=== PATIENT | male | born 1940 | race Caucasian/White ===

== ENCOUNTER 2016-12-19 07:27 | Day surgery (SDC) | payer MEDICARE, OTHER ==
[~2016-12-19 07:27] MED LIST: Lactated Ringers 1,000 ML IV SCH; Lidocaine 1%/Sod Bicarbonate in NS 8.4% 1 ML Syringe PRN; Sodium Chloride 0.9% 10 ML Syringe FLUSH PRN
--- NOTE | 2016-12-19 07:55 | PCM.OPNOTE ---
- General Post-Op/Procedure Note Date of Surgery/Procedure: 12/19/16 Operative Procedure(s): Surveillance colonoscopy with cold forceps polypectomy Pre Op Diagnosis: Personal history of adenomatous polyps, personal history of polyps with high-grade dysplasia Post-Op Diagnosis: Colon polyps Anesthesia Technique: MAC Primary Surgeon: Lexi Torres Anesthesia Provider: Sobia Mahoney Pathology: 1. Transverse colon polyp 2. Sigmoid colon polyp 3. Rectosigmoid junction polyp EBL in mLs: 1 Complications: None Condition: Good Free Text/Narrative:: FLUIDS: 900 mL crystalloid INDICATION FOR PROCEDURE: The patient is a 76-year-old man who was referred to me by Dr. Kathrin Moralez for evaluation for a personal history of multiple colon polyps, including polyps that had high-grade dysplasia. Performing a surveillance colonoscopy and the associated risks of the procedure had been discussed with the patient. The patient found these risks acceptable and agreed to proceed. DESCRIPTION OF PROCEDURE: The patient was taken to the operating room and placed in left lateral decubitus position. After induction of adequate sedation , a digital rectal exam was performed which was unremarkable. A pediatric Olympus colonoscope was inserted into the rectum and guided under direct visualization to the appendiceal orifice and ileocecal valve. The scope was then slowly withdrawn through the colon. The quality of the prep was good. There was no evidence of angiodysplasias or diverticulum. There is a small sessile polyp in the transverse colon. This was removed in its entirety using cold forceps. There was a small sessile sigmoid colon polyp. This was removed in its entirety using cold forceps. There was a small rectosigmoid junction colon polyp, this was removed in its entirety using cold forceps. or mass lesions. The scope was withdrawn into the rectum and retroflexed. There was no significant prominence of the patient's internal hemorrhoids. The scope was straightened, the colon was desufflated, and the scope was withdrawn. The patient was awakened from sedation and transferred to the recovery room in stable condition having tolerated the procedure well. POSTOPERATIVE PLAN: I discussed with the patient and his my intraoperative findings and recommendations. He will be sent a letter regarding his colonoscopy pathology and when his next procedure should be performed. I would recommend no greater than 3 years due to his history of colon polyp with high- grade dysplasia.
--- NOTE | 2016-12-19 09:35 | PCM.PREANE ---
Preanesthetic Assessment - Anesthesia/Transfusion/Family Hx Anesthesia History: Prior Anesthesia Without Reaction Family History of Anesthesia Reaction: No Transfusion History: No Prior Transfusion(s) - Review of Systems General: No Symptoms Pulmonary: Shortness of Breath (copd), Cough Cardiovascular: No Symptoms Gastrointestinal: No symptoms, Constipation (watches closely) Neurological: No Symptoms, Headache (occasional) Other: Reports: Easy Bruising, Diabetes, Sinus Problem, Neck Pain (sometimes goes out), Depression (at times) - Physical Assessment NPO Status Date: 12/18/16 NPO Status Time: 22:00 O2 Sat by Pulse Oximetry: 98 Respiratory Rate: 16 Vital Signs: Last Vital Signs Temp 96.8 F 12/19/16 07:40 Pulse 72 12/19/16 07:40 Resp 16 12/19/16 07:40 BP 112/90 12/19/16 07:40 Pulse Ox 98 12/19/16 07:40 Height: 5 ft 9.5 in Weight: 92.986 kg ASA Class: 3 Mental Status: Alert & Oriented x3 Airway Class: Mallampati = 1 Dentition: Reports: Dentures (top and bottom) Thyro-Mental Finger Breadths: 3 Mouth Opening Finger Breadths: 3 ROM/Head Extension: Full Lungs: Clear to auscultation, Normal respiratory effort Cardiovascular: Regular Rate, Regular Rhythm - Allergies Allergies/Adverse Reactions: Allergies Allergy/AdvReac Type Severity Reaction Status Date / Time No Known Allergies Allergy Verified 12/19/16 08:05 - Blood Blood Available: No - Acknowledgements Anesthesia Type Planned: MAC Pt an Appropriate Candidate for the Planned Anesthesia: Yes Alternatives and Risks of Anesthesia Discussed w Pt/Guardian: Yes Pt/Guardian Understands and Agrees with Anesthesia Plan: Yes PreAnesthesia Questionnaire HEENT History: Reports: Impaired Vision Other HEENT History: wears glasses, dentures Cardiovascular History: Reports: Hypertension, Other (See Below) Other Cardiovascular History: diastolic dysfunction, angiogram, heart cath Respiratory History: Reports: COPD, Other (See Below) Other Respiratory History: histoplasmosis, chronic airway obstruction Gastrointestinal History: Reports: Chronic Constipation, Colon Polyp, PUD, Other (See Below) Other Gastrointestinal History: gastroparesis Genitourinary History: Reports: None MECHANIC History: Reports: None Musculoskeletal History: Reports: Osteoarthritis Neurological History: Reports: None Psychiatric History: Reports: None Endocrine/Metabolic History: Reports: Diabetes, Type II Hematologic History: Reports: None Immunologic History: Reports: None Oncologic (Cancer) History: Reports: None Dermatologic History: Reports: None - Past Surgical History GI Surgical History: Reports: Cholecystectomy, Colonoscopy Musculoskeletal Surgical History: Reports: Knee Replacement, Other (See Below) Other Musculoskeletal Surgeries/Procedures:: bilateral knee replacements, great toe bone spur repair - SUBSTANCE USE Smoking Status *Q: Former Smoker (quit 1997) Tobacco Use Within Last Twelve Months: No Second Hand Smoke Exposure: No Days Per Week of Alcohol Use: 0 Recreational Drug Use History: No - HOME MEDS Home Medications: Home Meds Albuterol [Proair HFA] 1 - 2 puff INH Q4H PRN 12/18/16 [History] Aloe Vera/Sodium Chloride [[place] Saline Nasal Gel] 1 dose NASBOTH DAILY PRN [History] Aspirin [Rosa Chewable Aspirin] 81 mg PO DAILY 12/18/16 [History] Budesonide/Formoterol [Symbicort 160-4.5 MCG] 2 puff INH BID 12/18/16 [History] Fluticasone Propionate [Flonase Allergy Relief] 1 spray NASBOTH DAILY PRN [History] Insulin Glarg,Human.Rec.Analog [LantUS Solostar] 22 units SQ BEDTIME 12/18/16 [ History] Krill/[place]-3/Dha/Epa/Lipids [Krill Oil 300 mg Softgel] 300 mg PO DAILY [History] L. Acidophilus/Pectin, [place] [Acidophilus Capsule] 1 cap PO DAILY 12/18/16 [ History] Lisinopril [Lisinopril] 10 mg PO DAILY 12/18/16 [History] Lutein/Minerals/Vit A,C & E [Ocuvite] 1 tab PO DAILY 12/18/16 [History] Multivitamin [Multivitamins] 1 tab PO DAILY 12/18/16 [History] Polyethylene Glycol 3350 [MiraLAX] 1 dose PO DAILY PRN 12/18/16 [History] Psyllium Husk [Metamucil] 1 dose PO DAILY PRN 12/18/16 [History] Sennosides [Senna] 1 - 2 tab PO DAILY 12/18/16 [History] Turmeric Root Extract [Turmeric] 500 mg PO DAILY 12/18/16 [History] Vitamin B Complex 1 cap PO DAILY 12/18/16 [History] sitaGLIPtin Phosphate [Januvia] 100 mg PO DAILY 12/18/16 [History] - CURRENT (IN HOUSE) MEDS Current Meds: Current Medications Lactated Ringer's (Ringers, Lactated) 1,000 mls @ 125 mls/hr IV ASDIRECTED RAISA Stop: 12/19/16 23:00 Last Admin: 12/19/16 07:50 Dose: 125 mls/hr Lidocaine/Sodium Bicarbonate (Buffered Lidocaine 1% In Ns 8.4%) 0.25 ml .XX ONETIME PRN PRN Reason: Prior to IV Start Stop: 12/19/16 18:00 Last Admin: 12/19/16 07:49 Dose: 0.25 ml Sodium Chloride (Saline Flush) 10 ml FLUSH ASDIRECTED PRN PRN Reason: Keep Vein Open Stop: 12/19/16 18:00 Discontinued Medications Lidocaine HCl (Xylocaine-Mpf 1%) Confirm Administered Dose 2 mls @ as directed .ROUTE .STK-MED ONE Stop: 12/19/16 09:38 Propofol (Diprivan 20 Ml) Confirm Administered Dose 200 mg .ROUTE .STK-MED ONE Stop: 12/19/16 09:38
[2016-12-19] MEDS ORDERED: Propofol 200 MG/20 ML SDV ONE ×3 (09:37→10:36)
[2016-12-19] MEDS ORDERED: Lidocaine 1% 2 ML ONE (09:37)
--- NOTE | 2016-12-19 10:34 | PCM48HPAN ---
Post Anesthesia Note - EVALUATION WITHIN 48HRS OF ANESTHETIC Vital Signs in Normal Range: Yes Patient Participated in Evaluation: Yes Respiratory Function Stable: Yes Airway Patent: Yes Cardiovascular Function Stable: Yes Hydration Status Stable: Yes Pain Control Satisfactory: Yes Nausea and Vomiting Control Satisfactory: Yes Mental Status Recovered: Yes
[2016-12-19 12:03] VITALS: BP 119/64
== END 2016-12-19 11:40 | disposition home or self-care (01) ==
LOC: JD.SDS 07:27
PROVIDERS: ATTEND Surgery
DX: Z12.11 Encounter for screening for malignant neoplasm of colon (principal); D12.3 Benign neoplasm of transverse colon; D12.5 Benign neoplasm of sigmoid colon; D12.7 Benign neoplasm of rectosigmoid junction; E11.43 Type 2 diabetes mellitus with diabetic autonomic (poly)neuropathy; J44.9 Chronic obstructive pulmonary disease, unspecified; K31.84 Gastroparesis; K27.9 Peptic ulcer, site unspecified, unspecified as acute or chronic, without hemorrhage or perforation; M19.90 Unspecified osteoarthritis, unspecified site; I51.89 Other ill-defined heart diseases; Z85.828 Personal history of other malignant neoplasm of skin
CPT/HCPCS: 45380; 88305; J7120; 00810; J2704

== ENCOUNTER 2018-03-24 11:40 | Emergency (ER) | payer MEDICARE, OTHER ==
[2018-03-24] MEDS ORDERED: Sodium Chloride 0.9% 10 ML Syringe FLUSH PRN (12:48)
--- NOTE | 2018-03-24 13:58 | EDM.PDOC ---
ED HPI GENERAL MEDICAL PROBLEM - General Chief Complaint: Cardiovascular Problem Stated Complaint: ATRIAL FLUTTER SENT BY [facility] Time Seen by Provider: 03/24/18 13:33 Source of Information: Reports: Patient, Provider (walk-in provider) History Limitations: Reports: No Limitations - History of Present Illness INITIAL COMMENTS - FREE TEXT/NARRATIVE: 77-year-old male is sent over from the clinic for evaluation and treatment of new-onset A. fib/flutter with RVR.. Patient primarily presented to the clinic today for abdominal pain. Reportedly he had epigastric pain that started about 2 weeks ago after "swallowing a pit. ". He states he got better than the symptoms and worsening symptoms improved again but he is now is experiencing pain to the lower abdomen. He denies any nausea or vomiting. Patient presented to the walk-in clinic today for a lower abdominal pain. He is found to have irregular rhythm any. EKG was done which showed a flutter with 2: 1 AV block and rapid rate of 122. He states he's never had this before. He denies any chest pain, lightheadedness, dizziness or palpitations. He reports shortness breath but states this is chronic. No neck pain or arm pain. Reports back pain that is chronic. Patient has a history of diabetes. His blood sugar this morning was 163. Labs from the clinic for CBC and a CMP. The blood cell count 10.7, hemoglobin 16.1, platelets 137. Sodium 137, potassium 4.5, normal chloride 102. Glucose 159. Liver enzymes within normal limits. Anion gap 15. Right Lower Abdominal Pain Score (Numeric/FACES): 8 - Related Data Allergies Allergy/AdvReac Type Severity Reaction Status Date / Time No Known Allergies Allergy Verified 03/24/18 12:10 Home Meds: Home Meds Albuterol [Proair HFA] 1 - 2 puff INH Q4H PRN 12/18/16 [History] Aloe Vera/Sodium Chloride [[place] Saline Nasal Gel] 1 dose NASBOTH DAILY PRN [History] Aspirin [Rosa Chewable Aspirin] 81 mg PO DAILY 12/18/16 [History] Budesonide/Formoterol [Symbicort 160-4.5 MCG] 2 puff INH BID 12/18/16 [History] Fluticasone Propionate [Flonase Allergy Relief] 1 spray NASBOTH DAILY PRN [History] Insulin Glarg,Human.Rec.Analog [LantUS Solostar] 22 units SQ BEDTIME 12/18/16 [ History] Krill/[place]-3/Dha/Epa/Lipids [Krill Oil 300 mg Softgel] 300 mg PO DAILY [History] L. Acidophilus/Pectin, [place] [Acidophilus Capsule] 1 cap PO DAILY 12/18/16 [ History] Lisinopril 10 mg PO DAILY 12/18/16 [History] Lutein/Minerals/Vit A,C & E [Ocuvite] 1 tab PO DAILY 12/18/16 [History] Multivitamin [Multivitamins] 1 tab PO DAILY 12/18/16 [History] Polyethylene Glycol 3350 [MiraLAX] 1 dose PO DAILY PRN 12/18/16 [History] Psyllium Husk [Metamucil] 1 dose PO DAILY PRN 12/18/16 [History] Turmeric Root Extract [Turmeric] 500 mg PO DAILY 12/18/16 [History] Vitamin B Complex 1 cap PO DAILY 12/18/16 [History] sitaGLIPtin Phosphate [Januvia] 100 mg PO DAILY 12/18/16 [History] Metoprolol Succinate 50 mg PO DAILY #30 tab.er.24h 03/24/18 [Rx] Rivaroxaban [Xarelto] 20 mg PO DAILY #30 tablet 03/24/18 [Rx] Past Medical History HEENT History: Reports: Impaired Vision Other HEENT History: wears glasses, dentures Cardiovascular History: Reports: Hypertension, Other (See Below) Other Cardiovascular History: diastolic dysfunction, angiogram, heart cath Respiratory History: Reports: COPD, Other (See Below) Other Respiratory History: histoplasmosis, chronic airway obstruction Gastrointestinal History: Reports: Chronic Constipation, Colon Polyp, PUD, Other (See Below) Other Gastrointestinal History: gastroparesis Genitourinary History: Reports: None AWARD CLERK History: Reports: None Musculoskeletal History: Reports: Osteoarthritis Neurological History: Reports: None Psychiatric History: Reports: None Endocrine/Metabolic History: Reports: Diabetes, Type II Hematologic History: Reports: None Immunologic History: Reports: None Oncologic (Cancer) History: Reports: None Dermatologic History: Reports: None - Past Surgical History GI Surgical History: Reports: Cholecystectomy, Colonoscopy Musculoskeletal Surgical History: Reports: Knee Replacement, Other (See Below) Other Musculoskeletal Surgeries/Procedures:: bilateral knee replacements, great toe bone spur repair Social & Family History - Tobacco Use Smoking Status *Q: Former Smoker Used Tobacco, but Quit: Yes Month/Year Tobacco Last Used: 07/1997 Second Hand Smoke Exposure: No - Caffeine Use Caffeine Use: Reports: Coffee - Recreational Drug Use Recreational Drug Use: No ED ROS GENERAL - Review of Systems Review Of Systems: See Below Respiratory: Reports: Shortness of Breath (chronic) Cardiovascular: Denies: Chest Pain, Lightheadedness, Palpitations, Syncope GI/Abdominal: Reports: Abdominal Pain (lower abdomen). Denies: Nausea, Vomiting Musculoskeletal: Denies: Neck Pain, Arm Pain Neurological: Denies: Dizziness, Syncope ED EXAM, GENERAL - Physical Exam Exam: See Below Exam Limited By: No Limitations General Appearance: Alert, WD/WN, No Apparent Distress Nose: Normal Inspection Throat/Mouth: Normal Inspection, Normal Voice, No Airway Compromise Respiratory/Chest: No Respiratory Distress, Lungs Clear, Normal Breath Sounds Cardiovascular: Normal Peripheral Pulses, No Murmur, Tachycardia, Irregularly Irregular Neurological: Alert, Oriented, Normal Cognition Psychiatric: Normal Affect, Normal Mood Skin Exam: Warm, Dry, Normal Color EKG INTERPRETATION EKG Date: 03/24/18 Time: 14:50 Rhythm: A-Fib Rate (Beats/Min): 95 [place]: LAD-Left [place] Deviation P-Wave: Present QRS: Normal ST-T: Normal QT: Normal EKG Interpretation Comments: ekg done at 12:05 a.fib/flutter with a 2:1 block. Q waves III and AVF - consider old inferior wall Mi. LAD (-25 degrees) Reviewed by myself and Dr. Healy. ekg done at 14:49 a.fib with a rate of 62-165 bpm. Q waves V1 - normal variants. Mildly decreased voltage navi and precordial leads. Q waves III and AVF - consider old inferior wall Mi. LAD (-18 degrees). Reviewed by myself and Dr. Healy. Course - Vital Signs Last Recorded V/S: Last Vital Signs Temp 98.8 F 03/24/18 12:05 Pulse 103 H 03/24/18 14:24 Resp 18 03/24/18 12:05 BP 113/73 03/24/18 14:24 Pulse Ox 98 03/24/18 12:05 - Orders/Labs/Meds Labs: Laboratory Tests 03/24/18 03/24/18 03/24/18 Range/Units 14:55 14:55 14:55 PT 11.0 (9.5-12.1) SECONDS INR 1.01 APTT 28 (24-31) SECONDS POC Glucose (83-110) mg/dL C-Reactive Protein 0.4 (<1.0) mg/dL NT-Pro-B Natriuret Pep 415 (0-450) pg/mL Lipase 235 (73-393) U/L 03/24/18 Range/Units 16:38 PT (9.5-12.1) SECONDS INR APTT (24-31) SECONDS POC Glucose 119 H (83-110) mg/dL C-Reactive Protein (<1.0) mg/dL NT-Pro-B Natriuret Pep (0-450) pg/mL Lipase (73-393) U/L Meds: Medications Discontinued Medications Generic Name Dose Route Start Last Admin Trade Name Freq PRN Reason Stop Dose Admin Diatrizoate Meglum/Diatrizoate Sod 90 ml 03/24/18 14:56 03/24/18 15:13 Gastrografin 37% PO 03/24/18 14:57 90 ml ONETIME ONE Administration Iopamidol 100 ml 03/24/18 14:56 03/24/18 15:13 Isovue-300 (61%) IVPUSH 03/24/18 14:57 100 ml ONETIME ONE Administration Metoprolol Succinate 50 mg 03/24/18 14:02 03/24/18 14:24 Toprol Xl PO 03/24/18 14:03 50 mg ONETIME ONE Administration Sodium Chloride 10 ml 03/24/18 12:48 03/24/18 13:07 Saline Flush FLUSH 10 ml ASDIRECTED PRN Administration Keep Vein Open Sodium Chloride 10 ml 03/24/18 14:56 03/24/18 15:14 Saline Flush FLUSH 03/24/18 14:57 10 ml ONETIME ONE Administration - Radiology Interpretation Free Text/Narrative:: Chest: Portable view of the chest was obtained. Comparison: Prior chest x-ray of 07/08/12. Heart size and mediastinum are within normal limits for portable technique. Slight scarring is seen within the left base. Scattered granulomas seen on both sides of the chest. Lungs otherwise are clear. Bony structures are grossly intact. Impression: 1. Nothing acute is seen on portable chest x-ray. CT abdomen and pelvis Technique: Multiple axial sections were obtained from above the dome of the diaphragm inferiorly through the pubic symphysis. Intravenous and oral contrast was utilized. Delayed images were obtained through the bladder. Comparison: Previous CT abdomen and pelvis exam of 04/03/12. Findings: Visualized lung bases show calcified granulomas within the right and left base. Parenchymal scarring is seen within the left base. Slight increased fat is seen within the pleural space posteriorly on both sides which is incidental. Minimal low density lesion measuring about 3 mm is seen anteriorly within the liver which is stable from prior CT study presumably due to small cyst. Small amount of fat is seen around the ligamentum teres fissure which is incidental. Surgical clips are seen from prior cholecystectomy. Calcified granulomas are seen within the spleen. Small low density finding is seen within the superior spleen which is stable from prior exam and therefore incidental. Adrenal glands show no nodule. Multiple cysts are seen within both kidneys. There appears to be several small nonobstructing stones within the inferior kidneys. Aorta shows atherosclerotic change without aneurysm. Pancreas appears within normal limits. No retroperitoneal adenopathy is seen. No mesenteric abnormalities are seen. Appendix is seen and appears normal in size. Prostate gland is mildly enlarged showing calcifications. No pelvic mass or adenopathy is seen. No inflammatory change or free fluid is seen. Diffuse degenerative change is noted within the spine on bone window settings. Delayed images shows contrast within the distal ureters and bladder. Impression: 1. Multiple findings as noted above. Nothing acute is appreciated on CT study of the abdomen and pelvis. - Re-Assessments/Exams Free Text/Narrative Re-Assessment/Exam: 03/24/18 17:[address] Healy, recommended trying metoprolol PO and if does not respond Cardizem. Patient is asymptomatic from the a.fib. I reviewed the labs, ekg and imaging with the patient. No etiology for abdominal discomfort clear at this point. Discussed anticoagulation. CHADs 2 score is 3 recommending anticoagulation, discussed anticoagulation options. Patient does not want to go on coumadin. Elects to go on a new agent. Patient has responded well to the metoprolol. Hear rate has been in the 70s, still irregular. Will discharge home with close follow-up in the clinic. Discharge instructions as documented. Departure - Departure Time of Disposition: 17:23 Disposition: Home, Self-Care 01 Condition: Fair Clinical Impression: Atrial fibrillation Qualifiers: Atrial fibrillation type: unspecified Qualified Code(s): I48.91 - Unspecified atrial fibrillation Prescriptions: Metoprolol Succinate 50 mg PO DAILY #30 tab.er.24h Rivaroxaban [Xarelto] 20 mg PO DAILY #30 tablet Instructions: Atrial Fibrillation Referrals: Kathrin Moralez MD [Primary Care Provider] - Forms: ED Department Discharge Additional Instructions: Take the metoprolol 1 tablet daily. your first dose was given in the ED, start this prescription tomorrow. Take the xarelto 1 tab daily. This is to prevent any stroke. This medication does come with a risk of increased bleeding. Follow-up with your primary care provider this week. Please return to the ER if your symptoms change or worsen.
[2018-03-24] MEDS ORDERED: Metoprolol Succinate 25 MG Tab.ER PO ONE (14:02)
[2018-03-24 14:26] VITALS: BP 113/73
--- NOTE | 2018-03-24 14:36 | CR ---
Chest: Portable view of the chest was obtained. Comparison: Prior chest x-ray of 07/08/12. Heart size and mediastinum are within normal limits for portable technique. Slight scarring is seen within the left base. Scattered granulomas seen on both sides of the chest. Lungs otherwise are clear. Bony structures are grossly intact. Impression: 1. Nothing acute is seen on portable chest x-ray. Diagnostic code #2
[2018-03-24] MEDS ORDERED: Iopamidol 612 MG/ML 100 ML Bottle IVPUSH ONE (14:56)
[2018-03-24] MEDS ORDERED: Diatrizoate Meglumine/Diatrizoate Sodium 37% 120 ML Bottle PO ONE (14:56)
[2018-03-24] MEDS ORDERED: Sodium Chloride 0.9% 10 ML Syringe FLUSH ONE (14:56)
--- NOTE | 2018-03-24 15:42 | CT ---
CT abdomen and pelvis Technique: Multiple axial sections were obtained from above the dome of the diaphragm inferiorly through the pubic symphysis. Intravenous and oral contrast was utilized. Delayed images were obtained through the bladder. Comparison: Previous CT abdomen and pelvis exam of 04/03/12. Findings: Visualized lung bases show calcified granulomas within the right and left base. Parenchymal scarring is seen within the left base. Slight increased fat is seen within the pleural space posteriorly on both sides which is incidental. Minimal low density lesion measuring about 3 mm is seen anteriorly within the liver which is stable from prior CT study presumably due to small cyst. Small amount of fat is seen around the ligamentum teres fissure which is incidental. Surgical clips are seen from prior cholecystectomy. Calcified granulomas are seen within the spleen. Small low density finding is seen within the superior spleen which is stable from prior exam and therefore incidental. Adrenal glands show no nodule. Multiple cysts are seen within both kidneys. There appears to be several small nonobstructing stones within the inferior kidneys. Aorta shows atherosclerotic change without aneurysm. Pancreas appears within normal limits. No retroperitoneal adenopathy is seen. No mesenteric abnormalities are seen. Appendix is seen and appears normal in size. Prostate gland is mildly enlarged showing calcifications. No pelvic mass or adenopathy is seen. No inflammatory change or free fluid is seen. Diffuse degenerative change is noted within the spine on bone window settings. Delayed images shows contrast within the distal ureters and bladder. Impression: 1. Multiple findings as noted above. Nothing acute is appreciated on CT study of the abdomen and pelvis. Diagnostic code #2
== END 2018-03-24 17:50 | disposition home or self-care (01) ==
LOC: JD.ED 11:40
DX: I48.91 Unspecified atrial fibrillation (principal); E11.9 Type 2 diabetes mellitus without complications; I10 Essential (primary) hypertension; J44.9 Chronic obstructive pulmonary disease, unspecified; Z87.891 Personal history of nicotine dependence; Z79.82 Long term (current) use of aspirin; Z79.899 Other long term (current) drug therapy
CPT/HCPCS: 36415; 71045; 74177; 82962; 83690; 83880; 85610; 85730; 86140; 93005; 99285; A9270; J7050; Q9963; Q9967

== ENCOUNTER 2018-07-20 10:52 | Emergency (ER) | payer MEDICARE, OTHER ==
[2018-07-20] MEDS ORDERED: Sodium Chloride 0.9% 10 ML Syringe FLUSH PRN (11:25)
[2018-07-20 11:27] VITALS: BP 120/68
[2018-07-20] MEDS ORDERED: Sodium Chloride 0.9% 1,000 ML IV SCH (11:30)
--- NOTE | 2018-07-20 11:35 | EDM.PDOC ---
ED HPI GENERAL MEDICAL PROBLEM - General Chief Complaint: Chest Pain Stated Complaint: [facility] Time Seen by Provider: 07/20/18 11:12 Source of Information: Reports: Patient History Limitations: Reports: No Limitations - History of Present Illness INITIAL COMMENTS - FREE TEXT/NARRATIVE: 77-year-old male who presents ED complaining of left lateral chest discomfort just below the left nipple. States it came on approximately 9:00 today with no clear indication why. States the pain is described as a dull ache worse with palpation decreased with movement/ambulation. Denies any recent fall or activity that may have precipitated this. He's had no previous history of pain as such. He's also been complaining of some mild dizziness with body position changes. Last for approximately for a few minutes and resolves on its own accord. There's been no sensation of pre/syncopal episodes. Pain is localized with no radiation. He has been mildly short of breath with concerns of low O2 sats of 91%. He has COPD. With admission to the ED patient's O2 sats are 95% on room air. He does not appear in acute respiratory distress. Approx. 1 month ago he was evaluated for atrial fibrillation. He's been on xarelto since and also taking metoprolol. Denies any hemoptysis, fever, palpitations, back pain, acid reflux, increased weight, increased edema to lower extremities, pain to lower extremities, orthopnea, and/or PND. He does have a history of urinary retention states he is unable to completely empty his bladder. Past medical history includes: CHF, hypertension, diastolic heart failure, COPD , diabetes type 2, atrial fibrillation, chronically anticoagulated Current medications include: Provera, aspirin, Symbicort, Flonase, Lantus, lisinopril, Januvia, metoprolol, xarelto. Chest Pain Score (Numeric/FACES): 4 - Related Data Allergies Allergy/AdvReac Type Severity Reaction Status Date / Time No Known Allergies Allergy Verified 07/20/18 11:19 Home Meds: Home Meds Albuterol [Proair HFA] 1 - 2 puff INH Q4H PRN 12/18/16 [History] Aloe Vera/Sodium Chloride [[place] Nasal Gel] 1 dose NASBOTH DAILY PRN [History] Aspirin [Rosa Chewable Aspirin] 81 mg PO DAILY 12/18/16 [History] Budesonide/Formoterol [Symbicort 160-4.5 MCG] 2 puff INH BID 12/18/16 [History] Fluticasone Propionate [Flonase Allergy Relief] 1 spray NASBOTH DAILY PRN [History] Insulin Glarg,Human.Rec.Analog [LantUS Solostar] 22 units SQ BEDTIME 12/18/16 [ History] Krill/[place]-3/Dha/Epa/Lipids [Krill Oil 300 mg Softgel] 300 mg PO DAILY [History] Lisinopril 10 mg PO DAILY 12/18/16 [History] Lutein/Minerals/Vit A,C & E [Ocuvite] 1 tab PO DAILY 12/18/16 [History] Multivitamin [Multivitamins] 1 tab PO DAILY 12/18/16 [History] Polyethylene Glycol 3350 [MiraLAX] 1 dose PO DAILY PRN 12/18/16 [History] Psyllium Husk [Metamucil] 1 dose PO DAILY PRN 12/18/16 [History] Turmeric Root Extract [Turmeric] 500 mg PO DAILY 12/18/16 [History] Vitamin B Complex 1 cap PO DAILY 12/18/16 [History] sitaGLIPtin Phosphate [Januvia] 100 mg PO DAILY 12/18/16 [History] Rivaroxaban [Xarelto] 20 mg PO DAILY #30 tablet 03/24/18 [Rx] Past Medical History HEENT History: Reports: Impaired Vision Other HEENT History: wears glasses, dentures Cardiovascular History: Reports: Heart Failure, Hypertension, Other (See Below) Other Cardiovascular History: diastolic dysfunction, angiogram, heart cath Respiratory History: Reports: COPD, Other (See Below) Other Respiratory History: histoplasmosis, chronic airway obstruction Gastrointestinal History: Reports: Chronic Constipation, Colon Polyp, PUD, Other (See Below) Other Gastrointestinal History: gastroparesis Genitourinary History: Reports: None RIPSAWYER History: Reports: None Musculoskeletal History: Reports: Osteoarthritis Neurological History: Reports: None Psychiatric History: Reports: None Endocrine/Metabolic History: Reports: Diabetes, Type II (Controlled with insulin and oral hypoglycemics) Hematologic History: Reports: None Immunologic History: Reports: None Oncologic (Cancer) History: Reports: None Dermatologic History: Reports: None - Past Surgical History GI Surgical History: Reports: Cholecystectomy, Colonoscopy Musculoskeletal Surgical History: Reports: Knee Replacement, Other (See Below) Other Musculoskeletal Surgeries/Procedures:: bilateral knee replacements, great toe bone spur repair Social & Family History - Caffeine Use Caffeine Use: Reports: Coffee - Living Situation & Occupation Living situation: Reports: Occupation: Retired ED ROS GENERAL - Review of Systems Review Of Systems: ROS reveals no pertinent complaints other than HPI. ED EXAM, GENERAL - Physical Exam Exam: See Below Exam Limited By: No Limitations General Appearance: Alert, WD/WN, No Apparent Distress Ears: Hearing Grossly Normal Nose: Normal Inspection Throat/Mouth: Normal Voice, No Airway Compromise Head: Atraumatic, Normocephalic Neck: Normal Inspection, Supple, Non-Tender, Full Range of Motion Respiratory/Chest: No Respiratory Distress, Lungs Clear, Normal Breath Sounds, No Accessory Muscle Use, Chest Non-Tender Cardiovascular: Normal Peripheral Pulses, Regular Rate, Rhythm, Systolic Murmur Peripheral Pulses: 2+: Radial (L), Radial (R), Posterior Tibial (L), Posterior Tibial (R) GI/Abdominal: Normal Bowel Sounds, Soft, Non-Tender, No Organomegaly, No Distention Back Exam: Normal Inspection. No: CVA Tenderness (L), CVA Tenderness (R) Extremities: Normal Inspection, Normal Range of Motion, Non-Tender, No Pedal Edema, Normal Capillary Refill Neurological: Alert, Oriented, CN II-XII Intact, Normal Cognition, No Motor/ Sensory Deficits, Other (No facial droop, no tongue deviation, no slurred speech , no difficulty swallowing. Finger-nose and rapid alternating movements are intact. No weakness discrepancy's to the upper and lower extremities.) Psychiatric: Normal Affect, Normal Mood Skin Exam: Warm, Dry, Intact, Normal Color, No Rash Course - Vital Signs Last Recorded V/S: Last Vital Signs Temp 97.7 F 07/20/18 10:52 Pulse 66 07/20/18 10:52 Resp 16 07/20/18 10:52 BP 120/68 07/20/18 10:52 Pulse Ox 97 07/20/18 10:52 Orthostatic Blood Pressure [ 112/70 Standing] Orthostatic Blood Pressure [ 115/72 Sitting] Orthostatic Blood Pressure [ 115/76 Supine] - Orders/Labs/Meds Orders: Active Orders 24 hr Category Date Time Status EKG Documentation Completion [RC] STAT Care 07/20/18 11:26 Active Orthostatic Vital Signs [RC] ASDIRECTED Care 07/20/18 11:26 Active Oxygen Therapy [RC] ASDIRECTED Care 07/20/18 11:26 Active Peripheral IV Care [RC] . DIRECTED Care 07/20/18 11:26 Active Peripheral IV Insertion Adult [OM.PC] Stat Oth 07/20/18 11:26 Ordered Labs: Laboratory Tests 07/20/18 07/20/18 07/20/18 Range/Units 11:13 11:13 11:13 WBC 7.48 (4.23-9.07) K/mm3 RBC 4.68 (4.63-6.08) M/mm3 Hgb 15.2 (13.7-17.5) gm/L Hct 43.8 (40.1-51.0) % MCV 93.6 H (79.0-92.2) fl MCH 32.5 H (25.7-32.2) pg MCHC 34.7 (32.2-35.5) g/dl RDW Std Deviation 43.9 (35.1-43.9) fL Plt Count 124 L (163-337) K/mm3 MPV 10.0 (9.4-12.3) fl Neutrophils % (Manual) 84 H (40-60) % Band Neutrophils % 1 (0-10) % Lymphocytes % (Manual) 12 L (20-40) % Atypical Lymphs % 0 % Immat Monocytes % (Man) 0 Monocytes % (Manual) 3 (2-10) % Eosinophils % (Manual) 0 L (0.8-7.0) % Basophils % (Manual) 0 L (0.2-1.2) Metamyelocytes % 0 Myelocytes % 0 Promyelocytes % 0 Blast Cells % 0 Plasma Cell % (Manual) 0 Nucleated RBCs 0.0 % Platelet Estimate See note RBC Morph Comment Normal PT 10.9 (9.5-12.1) SECONDS INR 1.00 APTT 29 (24-31) SECONDS Sodium 141 (136-145) mEq/L Potassium 4.2 (3.5-5.1) mEq/L Chloride 105 (98-107) mEq/L Carbon Dioxide 27 (21-32) mEq/L Anion Gap 13.2 (5-15) BUN 16 (7-18) mg/dL Creatinine 0.9 (0.7-1.3) mg/dL Est Cr Clr Drug Dosing 66.55 mL/min Estimated GFR (MDRD) > 60 (>60) mL/min BUN/Creatinine Ratio 17.8 (14-18) Glucose 113 (83-115) mg/dL Calcium 9.4 (8.5-10.1) mg/dL Total Bilirubin 0.4 (0.2-1.0) mg/dL AST 20 (15-37) U/L ALT 30 (16-63) U/L Alkaline Phosphatase 56 (46-116) U/L Troponin I < 0.017 (0.00-0.056) ng/mL NT-Pro-B Natriuret Pep (0-450) pg/mL Total Protein 7.2 (6.4-8.2) g/dl Albumin 3.7 (3.4-5.0) g/dl Globulin 3.5 gm/dL Albumin/Globulin Ratio 1.1 (1-2) Urine Color (Yellow) Urine Appearance (Clear) Urine pH (5.0-8.0) Ur Specific [place] (1.005-1.030) Urine Protein (Negative) Urine Glucose (UA) (Negative) Urine Ketones (Negative) Urine Occult Blood (Negative) Urine Nitrite (Negative) Urine Bilirubin (Negative) Urine Urobilinogen (0.2-1.0) Ur Leukocyte Esterase (Negative) 07/20/18 07/20/18 07/20/18 Range/Units 11:13 11:50 14:35 WBC (4.23-9.07) K/mm3 RBC (4.63-6.08) M/mm3 Hgb (13.7-17.5) gm/L Hct (40.1-51.0) % MCV (79.0-92.2) fl MCH (25.7-32.2) pg MCHC (32.2-35.5) g/dl RDW Std Deviation (35.1-43.9) fL Plt Count (163-337) K/mm3 MPV (9.4-12.3) fl Neutrophils % (Manual) (40-60) % Band Neutrophils % (0-10) % Lymphocytes % (Manual) (20-40) % Atypical Lymphs % % Immat Monocytes % (Man) Monocytes % (Manual) (2-10) % Eosinophils % (Manual) (0.8-7.0) % Basophils % (Manual) (0.2-1.2) Metamyelocytes % Myelocytes % Promyelocytes % Blast Cells % Plasma Cell % (Manual) Nucleated RBCs % Platelet Estimate RBC Morph Comment PT (9.5-12.1) SECONDS INR APTT (24-31) SECONDS Sodium (136-145) mEq/L Potassium (3.5-5.1) mEq/L Chloride (98-107) mEq/L Carbon Dioxide (21-32) mEq/L Anion Gap (5-15) BUN (7-18) mg/dL Creatinine (0.7-1.3) mg/dL Est Cr Clr Drug Dosing mL/min Estimated GFR (MDRD) (>60) mL/min BUN/Creatinine Ratio (14-18) Glucose (83-115) mg/dL Calcium (8.5-10.1) mg/dL Total Bilirubin (0.2-1.0) mg/dL AST (15-37) U/L ALT (16-63) U/L Alkaline Phosphatase (46-116) U/L Troponin I < 0.017 (0.00-0.056) ng/mL NT-Pro-B Natriuret Pep 23 (0-450) pg/mL Total Protein (6.4-8.2) g/dl Albumin (3.4-5.0) g/dl Globulin gm/dL Albumin/Globulin Ratio (1-2) Urine Color Yellow (Yellow) Urine Appearance Clear (Clear) Urine pH 7.5 (5.0-8.0) Ur Specific [place] 1.020 (1.005-1.030) Urine Protein Negative (Negative) Urine Glucose (UA) Negative (Negative) Urine Ketones Negative (Negative) Urine Occult Blood Negative (Negative) Urine Nitrite Negative (Negative) Urine Bilirubin Negative (Negative) Urine Urobilinogen 0.2 (0.2-1.0) Ur Leukocyte Esterase Negative (Negative) Meds: Medications Discontinued Medications Generic Name Dose Route Start Last Admin Trade Name Freq PRN Reason Stop Dose Admin Sodium Chloride 1,000 mls @ 125 mls/hr 07/20/18 11:30 07/20/18 11:55 Normal Saline IV 125 mls/hr ASDIRECTED RAISA Administration Sodium Chloride 10 ml 07/20/18 11:25 07/20/18 11:13 Saline Flush FLUSH 10 ml ASDIRECTED PRN Administration Keep Vein Open - Re-Assessments/Exams Free Text/Narrative Re-Assessment/Exam: Currently pain described as an achy sensation left chest just underneath the nipple with no pain with palpation and taking a deep breath. No bruising, swelling, rash, open wounds present. No swelling or tenderness to the lower extremities. Patient has been taken Xarelto as prescribed. Initial labs and studies include: CBC, chem 14, troponin, chest x-ray one view, was set of vital signs, EKG, UA reflex and micro-, pro BNP, and coag studies. D&D for intermittent pain in the left chest with intermittent dizziness: BPV, Hypoglycemia, Stroke/TIA, postural hypotension, mi, atrial fibrillation with intermittent RVR, orthostatic hypotension, dehydration, chest wall pain, pneumonia, obstructed ear canals, and PE. BS 96 upon admission. EKG sinus rhythm at a rate of 63 with findings concerning for septal hypertrophy. QTC is mildly prolonged. No acute ST changes noted. This compared with previous EKG obtained 05/18/2018. Orthostatic vital signs were negative. Labs: CBC essentially normal minus platelet count of 124. Chemistry panel normal. Troponin less than 0.017. Pro-BNP 23. UA negative. Chest x-ray: No signficant change from previous CXR 05/2018. Reviewed with Dr. Healy. Final interpretation is pending. CT head w/o contrast: No acute findings. 1400 Awaiting for 2nd troponin to be obtained. Reassessment, patient has no symptoms currently. No pain noted to the chest or abdomen on reexamination. VSS. Patient did ambulate to the bathroom with mild dizziness with standing. This has resolved. Will have nursing staff walk the patient and see how he tolerates. Suspect cause of symptoms is related to postural hypotension. Patient's current rhythm is sinus in nature. Labs and exam did not indicate patient is dehydrated. No findings concerning for pneumonia on chest x-ray. Do not believe this is related to pulmonary embolus. Patient has intermittent pain. O2 sats are normal. He is not tachycardic. He is on Xarelto for paroxsymal A. fib. Patient did get up and walk with nursing staff with no difficulties. Discharge instructions as documented.The patient remained hemodynamically stable while under my care in the E.D. I discussed the concerning symptoms for which to returnto the E.D. with the patient/family. The patient/family verbalized understanding. All questions were answered. Departure - Departure Time of Disposition: 15:31 Disposition: Home, Self-Care 01 Condition: Good Clinical Impression: Autonomic postural hypotension Instructions: Hypotension, [id number] Referrals: Kathrin Moralez MD [Primary Care Provider] - Forms: ED Department Discharge Additional Instructions: Suspect cause of dizziness with position changes is secondary to autonomic postural hypotension. Common in the older population on blood pressure medications. Please allow yourself time to obtain equilibrium with position changes prior to ambulating. Due to being on Xarelto if you fall and hit your head you are increased risk of developing a head bleed which could be catastrophic. Ensure adequate intake of fluids. Eat a balanced diet. Follow-up with your PCP in the next week for reevaluation. Please return back to the ED if you develope any new or worsening symptoms as discussed. - My Orders Last 24 Hours: My Active Orders 07/20/18 11:26 EKG Documentation Completion [RC] STAT Orthostatic Vital Signs [RC] ASDIRECTED Oxygen Therapy [RC] ASDIRECTED Peripheral IV Care [RC] . DIRECTED Peripheral IV Insertion Adult [OM.PC] Stat - Assessment/Plan Last 24 Hours: My Active Orders 07/20/18 11:26 EKG Documentation Completion [RC] STAT Orthostatic Vital Signs [RC] ASDIRECTED Oxygen Therapy [RC] ASDIRECTED Peripheral IV Care [RC] . DIRECTED Peripheral IV Insertion Adult [OM.PC] Stat
--- NOTE | 2018-07-20 13:27 | CT ---
Head CT Technique: Multiple axial sections through the brain were obtained. Intravenous contrast was not utilized. Comparison: No previous intracranial imaging. Findings: Ventricles along with basal cisterns and sulci over the convexities are moderately prominent. Mild diminished density is noted within the periventricular and subcortical white matter compatible with mild small vessel ischemic demyelination change. Several lacunar infarcts are noted within the basal ganglia. Mild atherosclerotic calcification is seen within the carotid siphon. No evidence of intracranial hemorrhage. No midline shift or mass effect is seen. Bone window settings were reviewed which shows no acute calvarial abnormality. Mild mucosal thickening is seen within the ethmoid sinus which is incidental. Impression: 1. Senescent change as noted above. Incidental sinus finding. 2. Nothing acute is appreciated on noncontrast head CT exam. Diagnostic code #2
--- NOTE | 2018-07-20 14:08 | CR ---
Chest: Portable view of the chest was obtained. Comparison: Prior chest x-ray of 05/18/18. Heart size and mediastinum are normal. Minimal scarring within the left base is noted and is stable. Lungs are otherwise clear with no acute parenchymal change. Bony structures are grossly intact. Impression: 1. Nothing acute is seen on portable chest x-ray. No change is seen from previous chest x-ray. Diagnostic code #2
== END 2018-07-20 15:40 | disposition home or self-care (01) ==
LOC: JD.ED 10:52 → SUPCPDRO 10:52 → JD.ED 15:40
DX: I95.1 Orthostatic hypotension (principal); I11.0 Hypertensive heart disease with heart failure; I50.9 Heart failure, unspecified; J44.9 Chronic obstructive pulmonary disease, unspecified; E11.43 Type 2 diabetes mellitus with diabetic autonomic (poly)neuropathy; K31.84 Gastroparesis; Z79.899 Other long term (current) drug therapy; Z79.4 Long term (current) use of insulin
CPT/HCPCS: 36415; 70450; 71045; 80053; 81003; 82962; 83880; 84484; 85007; 85027; 85610; 85730; 93005; 96360; 96361; 99285; J7040; 93010; 99283

== ENCOUNTER 2018-08-10 14:25 | Emergency (ER) | payer MEDICARE, OTHER ==
--- NOTE | 2018-08-10 14:40 | EDM.PDOC ---
ED HPI GENERAL MEDICAL PROBLEM - General Chief Complaint: Trauma Stated Complaint: HEAD AND BACK INJURY Time Seen by Provider: 08/10/18 14:31 Source of Information: Reports: Patient History Limitations: Reports: No Limitations - History of Present Illness INITIAL COMMENTS - FREE TEXT/NARRATIVE: The patient is a 77-year-old male who comes in after head injury. He does take Elaquis, he is not sure why he is on this medication. He stepped out onto his driveway and slipped on the ice. His feet went out from underneath him. He landed on his bottom and then fell back and hit his head. He did not pass out. He does have a mild headache. No vision changes. No vomiting. No confusion. He also has some right lower back pain. No additional complaint. He was able to get up on his own. Denies chest pain, shortness breath, abdominal pain, or significant extremity injury. Posterior Headache Pain Score (Numeric/FACES): 3 - Related Data Allergies Allergy/AdvReac Type Severity Reaction Status Date / Time No Known Allergies Allergy Verified 08/10/18 14:39 Home Meds: Home Meds Albuterol [Proair HFA] 1 - 2 puff INH Q4H PRN 12/18/16 [History] Aloe Vera/Sodium Chloride [[place] Nasal Gel] 1 dose NASBOTH DAILY PRN [History] Aspirin [Rosa Chewable Aspirin] 81 mg PO DAILY 12/18/16 [History] Budesonide/Formoterol [Symbicort 160-4.5 MCG] 2 puff INH BID 12/18/16 [History] Fluticasone Propionate [Flonase Allergy Relief] 1 spray NASBOTH DAILY PRN [History] Insulin Glarg,Human.Rec.Analog [LantUS Solostar] 22 units SQ BEDTIME 12/18/16 [ History] Krill/[place]-3/Dha/Epa/Lipids [Krill Oil 300 mg Softgel] 300 mg PO DAILY [History] Lisinopril 10 mg PO DAILY 12/18/16 [History] Lutein/Minerals/Vit A,C & E [Ocuvite] 1 tab PO DAILY 12/18/16 [History] Multivitamin [Multivitamins] 1 tab PO DAILY 12/18/16 [History] Polyethylene Glycol 3350 [MiraLAX] 1 dose PO DAILY PRN 12/18/16 [History] Psyllium Husk [Metamucil] 1 dose PO DAILY PRN 12/18/16 [History] Turmeric Root Extract [Turmeric] 500 mg PO DAILY 12/18/16 [History] Vitamin B Complex 1 cap PO DAILY 12/18/16 [History] sitaGLIPtin Phosphate [Januvia] 100 mg PO DAILY 12/18/16 [History] Rivaroxaban [Xarelto] 20 mg PO DAILY #30 tablet 03/24/18 [Rx] Past Medical History HEENT History: Reports: Impaired Vision Other HEENT History: wears glasses, dentures Cardiovascular History: Reports: Heart Failure, Hypertension, Other (See Below) Other Cardiovascular History: diastolic dysfunction, angiogram, heart cath Respiratory History: Reports: COPD, Other (See Below) Other Respiratory History: histoplasmosis, chronic airway obstruction Gastrointestinal History: Reports: Chronic Constipation, Colon Polyp, PUD, Other (See Below) Other Gastrointestinal History: gastroparesis Genitourinary History: Reports: None Other Genitourinary History: unable to empty bladder. [employer] History: Reports: None Musculoskeletal History: Reports: Osteoarthritis Neurological History: Reports: None Psychiatric History: Reports: None Endocrine/Metabolic History: Reports: Diabetes, Type II (Controlled with insulin and oral hypoglycemics) Hematologic History: Reports: None Immunologic History: Reports: None Oncologic (Cancer) History: Reports: None Dermatologic History: Reports: None - Infectious Disease History Infectious Disease History: Reports: Chicken Pox, Measles, Mumps - Past Surgical History GI Surgical History: Reports: Cholecystectomy, Colonoscopy Musculoskeletal Surgical History: Reports: Knee Replacement, Other (See Below) Other Musculoskeletal Surgeries/Procedures:: bilateral knee replacements, great toe bone spur repair Social & Family History - Caffeine Use Caffeine Use: Reports: Coffee - Living Situation & Occupation Living situation: Reports: Occupation: Retired Review of Systems - Review of Systems Review Of Systems: See Below Constitutional: Denies: Fever Eyes: Reports: No Symptoms Ears: Reports: No Symptoms Nose: Reports: No Symptoms Mouth/Throat: Reports: No Symptoms Respiratory: Denies: Shortness of Breath Cardiovascular: Denies: Chest Pain GI/Abdominal: Denies: Abdominal Pain Musculoskeletal: Denies: Neck Pain Neurological: Reports: Headache ED EXAM, GENERAL - Physical Exam Exam: See Below Exam Limited By: No Limitations General Appearance: Alert, WD/WN, No Apparent Distress Eye Exam: Bilateral Eye: Normal Inspection Ears: Normal External Exam Nose: Normal Inspection, No Blood Throat/Mouth: Normal Inspection, Normal Oropharynx, Normal Voice Head: Normocephalic, Other (Mild scalp tenderness in the mid posterior occipital scalp, no significant hematoma, no crepitus.) Neck: Normal Inspection, Supple, Non-Tender, Full Range of Motion Respiratory/Chest: No Respiratory Distress, Normal Breath Sounds, Chest Non- Tender Cardiovascular: Normal Peripheral Pulses, Regular Rate, Rhythm, No Edema GI/Abdominal: Soft, Non-Tender, No Distention Back Exam: Normal Inspection, Other (Mild right lower lumbar paraspinal tenderness, no midline tenderness, no step-offs or deformities). No: Vertebral Tenderness Extremities: Normal Inspection, Non-Tender Neurological: Alert, Oriented, CN II-XII Intact, Normal Cognition, No Motor/ Sensory Deficits Psychiatric: Normal Affect, Normal Mood Skin Exam: Warm, Dry, Intact, Normal Color, No Rash Course - Vital Signs Last Recorded V/S: Last Vital Signs Temp 36.2 C 08/10/18 14:35 Pulse 85 08/10/18 14:35 Resp 16 08/10/18 14:35 BP 129/84 08/10/18 14:35 Pulse Ox 93 L 08/10/18 14:35 - Re-Assessments/Exams Free Text/Narrative Re-Assessment/Exam: 08/10/18 16:00 CT head shows no acute abnormality. He continues to have a normal mental status. No complaint at this time. Wants to go home. Will dc, discussed ED return precautions. Departure - Departure Time of Disposition: 16:01 Disposition: Home, Self-Care 01 Clinical Impression: Closed head injury Qualifiers: Encounter type: initial encounter Qualified Code(s): S09.90XA - Unspecified injury of head, initial encounter Back contusion Qualifiers: Encounter type: initial encounter Laterality: right Qualified Code(s): S20.221A - Contusion of right back wall of thorax, initial encounter - Discharge Information Referrals: Kathrin Moralez MD [Primary Care Provider] - Forms: ED Department Discharge Additional Instructions: 1. Ice areas of pain. Take acetaminophen (Tylenol) as needed for pain 2. Follow up with your primary care provider or return to the ED if you have any new concerning symptoms, such as severe pain, difficulty breathing, confusion, or any other concerns
--- NOTE | 2018-08-10 15:53 | CT ---
Head CT Technique: Multiple axial sections through the brain were obtained. Intravenous contrast was not utilized. Comparison: Prior head CT study of 07/20/18. Findings: Ventricles along with basal cisterns and sulci over the convexities are moderately prominent. Mild diminished density is noted within the periventricular and subcortical white matter which is compatible with small vessel ischemic demyelination change. Several stable lacunar infarcts are noted within the basal ganglia. No other abnormal parenchymal densities are seen. No evidence of intracranial hemorrhage. No midline shift or mass effect is seen. Bone window settings were reviewed which shows no acute calvarial abnormality. Mild areas of mucosal thickening are seen within the ethmoid sinuses which is felt to be incidental. No acute calvarial abnormality is seen. Mild atherosclerotic calcification is seen within the carotid siphon. Impression: 1. Sinus findings which are felt to be incidental. 2. Senescent change as described above which is similar to prior head CT exam. 3. Nothing acute is appreciated on noncontrast head CT exam. Diagnostic code #2
[2018-08-10 16:30] VITALS: BP 113/70
== END 2018-08-10 16:15 | disposition home or self-care (01) ==
LOC: JD.ED 14:25
DX: S09.90XA Unspecified injury of head, initial encounter (principal); S20.221A Contusion of right back wall of thorax, initial encounter; I11.0 Hypertensive heart disease with heart failure; I50.9 Heart failure, unspecified; E11.9 Type 2 diabetes mellitus without complications; Z79.899 Other long term (current) drug therapy; Z90.49 Acquired absence of other specified parts of digestive tract; Z96.653 Presence of artificial knee joint, bilateral; Z79.82 Long term (current) use of aspirin; Z79.4 Long term (current) use of insulin; Z87.891 Personal history of nicotine dependence; W00.0XXA Fall on same level due to ice and snow, initial encounter
CPT/HCPCS: 70450; 70450-26; 99284; 99284-25

== ENCOUNTER 2018-09-20 20:40 | Emergency (ER) | payer MEDICARE, OTHER ==
[2018-09-20 21:12] VITALS: BP 124/59
--- NOTE | 2018-09-20 21:33 | EDM.PDOC ---
ED HPI GENERAL MEDICAL PROBLEM - General Chief Complaint: Genitourinary Problem Stated Complaint: KIDNEY PAIN LIGHT BLOOD IN URINE Time Seen by Provider: 09/20/18 21:00 Source of Information: Reports: Patient History Limitations: Reports: No Limitations - History of Present Illness INITIAL COMMENTS - FREE TEXT/NARRATIVE: This is a 77-year-old male. Since 6 PM this evening he has had 3 urines that were pink tinged and bloody and also Coke colored as well. When he got to the ER she urinated and it was clear and the sample we got from him he states is clear. He denies any urinary tract type symptoms. He did state earlier that he had some mild right flank pain but he denies any pain when I come into the room and ask him about it. He states he has not been having any blood in his stool. He is on Eliquis for atrial fibrillation. He says other than that he is feeling fine and he was just concerned because of the blood in his urine. No recent colds or coughs no fever no chills no nausea or vomiting. - Related Data Allergies Allergy/AdvReac Type Severity Reaction Status Date / Time No Known Allergies Allergy Verified 08/10/18 14:39 Home Meds: Home Meds Albuterol [Proair HFA] 1 - 2 puff INH Q4H PRN 12/18/16 [History] Aloe Vera/Sodium Chloride [[place] Saline Nasal Gel] 1 dose NASBOTH DAILY PRN [History] Aspirin [Rosa Chewable Aspirin] 81 mg PO DAILY 12/18/16 [History] Budesonide/Formoterol [Symbicort 160-4.5 MCG] 2 puff INH BID 12/18/16 [History] Fluticasone Propionate [Flonase Allergy Relief] 1 spray NASBOTH DAILY PRN [History] Insulin Glarg,Human.Rec.Analog [LantUS Solostar] 22 units SQ BEDTIME 12/18/16 [ History] Krill/[place]-3/Dha/Epa/Lipids [Krill Oil 300 mg Softgel] 300 mg PO DAILY [History] Lisinopril 10 mg PO DAILY 12/18/16 [History] Lutein/Minerals/Vit A,C & E [Ocuvite] 1 tab PO DAILY 12/18/16 [History] Multivitamin [Multivitamins] 1 tab PO DAILY 12/18/16 [History] Polyethylene Glycol 3350 [MiraLAX] 1 dose PO DAILY PRN 12/18/16 [History] Psyllium Husk [Metamucil] 1 dose PO DAILY PRN 12/18/16 [History] Turmeric Root Extract [Turmeric] 500 mg PO DAILY 12/18/16 [History] Vitamin B Complex 1 cap PO DAILY 12/18/16 [History] sitaGLIPtin Phosphate [Januvia] 100 mg PO DAILY 12/18/16 [History] Rivaroxaban [Xarelto] 20 mg PO DAILY #30 tablet 03/24/18 [Rx] Past Medical History HEENT History: Reports: Impaired Vision Other HEENT History: wears glasses, dentures Cardiovascular History: Reports: Heart Failure, Hypertension, Other (See Below) Other Cardiovascular History: diastolic dysfunction, angiogram, heart cath Respiratory History: Reports: COPD, Other (See Below) Other Respiratory History: histoplasmosis, chronic airway obstruction Gastrointestinal History: Reports: Chronic Constipation, Colon Polyp, PUD, Other (See Below) Other Gastrointestinal History: gastroparesis Genitourinary History: Reports: None Other Genitourinary History: unable to empty bladder. [employer] History: Reports: None Musculoskeletal History: Reports: Osteoarthritis Neurological History: Reports: None Psychiatric History: Reports: None Endocrine/Metabolic History: Reports: Diabetes, Type II Hematologic History: Reports: None Immunologic History: Reports: None Oncologic (Cancer) History: Reports: None Dermatologic History: Reports: None - Infectious Disease History Infectious Disease History: Reports: Chicken Pox, Measles, Mumps - Past Surgical History GI Surgical History: Reports: Cholecystectomy, Colonoscopy Musculoskeletal Surgical History: Reports: Knee Replacement, Other (See Below) Other Musculoskeletal Surgeries/Procedures:: bilateral knee replacements, great toe bone spur repair Social & Family History - Family History Family Medical History: Noncontributory - Tobacco Use Smoking Status *Q: Former Smoker Used Tobacco, but Quit: Yes Month/Year Tobacco Last Used: 1997 - Caffeine Use Caffeine Use: Reports: Coffee - Recreational Drug Use Recreational Drug Use: No - Living Situation & Occupation Living situation: Reports: Occupation: Retired ED ROS GENERAL - Review of Systems Review Of Systems: See Below Constitutional: Denies: Fever, Chills HEENT: Reports: No Symptoms Respiratory: Reports: No Symptoms Cardiovascular: Reports: Other (Atrial fibrillation). Denies: Chest Pain Endocrine: Reports: No Symptoms GI/Abdominal: Denies: Abdominal Pain, Black Stool, Bloody Stool, Constipation, Diarrhea, Nausea, Vomiting : Reports: Flank Pain, Hematuria. Denies: Discharge, Dysuria Musculoskeletal: Reports: Other (General arthritic pain) Skin: Reports: No Symptoms Neurological: Reports: No Symptoms Psychiatric: Reports: No Symptoms Hematologic/Lymphatic: Reports: No Symptoms ED EXAM, RENAL/ - Physical Exam Exam: See Below Exam Limited By: No Limitations General Appearance: Alert, WD/WN, No Apparent Distress Eye Exam: Bilateral Eye: Normal Inspection Ears: Normal External Exam Nose: Normal Inspection Throat/Mouth: Normal Inspection, Normal Lips, Normal Voice, No Airway Compromise Head: Normocephalic Neck: Supple Respiratory/Chest: No Respiratory Distress, Lungs Clear, Normal Breath Sounds GI/Abdominal: Soft, Non-Tender, Other (He has no tenderness of the suprapubic area, no masses felt on palpation of his abdomen, he denies any flank pain to me ) Back Exam: Normal Inspection, Full Range of Motion Extremities: Normal Inspection, Normal Range of Motion Neurological: Alert, Oriented Psychiatric: Normal Affect, Normal Mood Skin Exam: Warm, Dry Course - Vital Signs Last Recorded V/S: Last Vital Signs Temp 98.0 F 09/20/18 21:08 Pulse 75 09/20/18 21:08 Resp 20 09/20/18 21:08 BP 124/59 L 09/20/18 21:08 Pulse Ox 94 L 09/20/18 21:08 - Orders/Labs/Meds Labs: Laboratory Tests 09/20/18 09/20/18 09/20/18 Range/Units 21:37 21:45 21:45 WBC 8.30 (4.23-9.07) K/mm3 RBC 4.48 L (4.63-6.08) M/mm3 Hgb 14.4 (13.7-17.5) gm/L Hct 42.2 (40.1-51.0) % MCV 94.2 H (79.0-92.2) fl MCH 32.1 (25.7-32.2) pg MCHC 34.1 (32.2-35.5) g/dl RDW Std Deviation 43.8 (35.1-43.9) fL Plt Count 131 L (163-337) K/mm3 MPV 9.6 (9.4-12.3) fl Neut % (Auto) 61.5 (34.0-67.9) % Lymph % (Auto) 27.1 (21.8-53.1) % [place] % (Auto) 8.9 (5.3-12.2) % Eos % (Auto) 2.0 (0.8-7.0) Baso % (Auto) 0.1 (0.1-1.2) % Neut # (Auto) 5.10 (1.78-5.38) K/mm3 Lymph # (Auto) 2.25 (1.32-3.57) K/mm3 [place] # (Auto) 0.74 (0.30-0.82) K/mm3 Eos # (Auto) 0.17 (0.04-0.54) K/mm3 Baso # (Auto) 0.01 (0.01-0.08) K/mm3 PT (9.5-12.1) SECONDS INR Sodium 141 (136-145) mEq/L Potassium 4.0 (3.5-5.1) mEq/L Chloride 106 (98-107) mEq/L Carbon Dioxide 25 (21-32) mEq/L Anion Gap 14.0 (5-15) BUN 16 (7-18) mg/dL Creatinine 1.0 (0.7-1.3) mg/dL Est Cr Clr Drug Dosing 59.90 mL/min Estimated GFR (MDRD) > 60 (>60) mL/min BUN/Creatinine Ratio 16.0 (14-18) Glucose 147 H (83-115) mg/dL Calcium 9.2 (8.5-10.1) mg/dL Total Bilirubin 0.5 (0.2-1.0) mg/dL AST 18 (15-37) U/L ALT 29 (16-63) U/L Alkaline Phosphatase 54 (46-116) U/L Total Protein 7.1 (6.4-8.2) g/dl Albumin 3.7 (3.4-5.0) g/dl Globulin 3.4 gm/dL Albumin/Globulin Ratio 1.1 (1-2) Urine Color Light yellow (Yellow) Urine Appearance Clear (Clear) Urine pH 6.5 (5.0-8.0) Ur Specific [place] 1.020 (1.005-1.030) Urine Protein Negative (Negative) Urine Glucose (UA) Negative (Negative) Urine Ketones Negative (Negative) Urine Occult Blood 2+ H (Negative) Urine Nitrite Negative (Negative) Urine Bilirubin Negative (Negative) Urine Urobilinogen 1.0 (0.2-1.0) Ur Leukocyte Esterase Negative (Negative) Urine RBC 0-5 (0-5) /hpf Urine WBC 0-5 (0-5) /hpf Ur Epithelial Cells 0-5 (0-5) /hpf Urine Bacteria Rare (FEW) /hpf Urine Mucus Not seen (FEW) /hpf 09/20/18 Range/Units 21:45 WBC (4.23-9.07) K/mm3 RBC (4.63-6.08) M/mm3 Hgb (13.7-17.5) gm/L Hct (40.1-51.0) % MCV (79.0-92.2) fl MCH (25.7-32.2) pg MCHC (32.2-35.5) g/dl RDW Std Deviation (35.1-43.9) fL Plt Count (163-337) K/mm3 MPV (9.4-12.3) fl Neut % (Auto) (34.0-67.9) % Lymph % (Auto) (21.8-53.1) % [place] % (Auto) (5.3-12.2) % Eos % (Auto) (0.8-7.0) Baso % (Auto) (0.1-1.2) % Neut # (Auto) (1.78-5.38) K/mm3 Lymph # (Auto) (1.32-3.57) K/mm3 [place] # (Auto) (0.30-0.82) K/mm3 Eos # (Auto) (0.04-0.54) K/mm3 Baso # (Auto) (0.01-0.08) K/mm3 PT 11.1 (9.5-12.1) SECONDS INR 1.02 Sodium (136-145) mEq/L Potassium (3.5-5.1) mEq/L Chloride (98-107) mEq/L Carbon Dioxide (21-32) mEq/L Anion Gap (5-15) BUN (7-18) mg/dL Creatinine (0.7-1.3) mg/dL Est Cr Clr Drug Dosing mL/min Estimated GFR (MDRD) (>60) mL/min BUN/Creatinine Ratio (14-18) Glucose (83-115) mg/dL Calcium (8.5-10.1) mg/dL Total Bilirubin (0.2-1.0) mg/dL AST (15-37) U/L ALT (16-63) U/L Alkaline Phosphatase (46-116) U/L Total Protein (6.4-8.2) g/dl Albumin (3.4-5.0) g/dl Globulin gm/dL Albumin/Globulin Ratio (1-2) Urine Color (Yellow) Urine Appearance (Clear) Urine pH (5.0-8.0) Ur Specific [place] (1.005-1.030) Urine Protein (Negative) Urine Glucose (UA) (Negative) Urine Ketones (Negative) Urine Occult Blood (Negative) Urine Nitrite (Negative) Urine Bilirubin (Negative) Urine Urobilinogen (0.2-1.0) Ur Leukocyte Esterase (Negative) Urine RBC (0-5) /hpf Urine WBC (0-5) /hpf Ur Epithelial Cells (0-5) /hpf Urine Bacteria (FEW) /hpf Urine Mucus (FEW) /hpf - Re-Assessments/Exams Free Text/Narrative Re-Assessment/Exam: 09/20/18 22:44 I spoke to the patient regarding his hemoglobin of 14.4 with his normal liver and kidney parameters and that his urine does not show any RBCs though there is some slight trace blood noted. My concern is that he might have a bladder polyp or possibly a kidney process is causing this intermittent blood and he needs to follow-up with his family doctor to have this investigated. I did explain to him that a bladder polyp if left alone long enough can turn into cancer so this is not something to just ignore and he says he will follow-up with his doc. Departure - Departure Time of Disposition: 22:45 Disposition: Home, Self-Care 01 Condition: Good Clinical Impression: Gross hematuria, Painless hematuria - Discharge Information *PRESCRIPTION DRUG MONITORING PROGRAM REVIEWED*: Not Applicable *COPY OF PRESCRIPTION DRUG MONITORING REPORT IN PATIENT [place]: Not Applicable Instructions: Hematuria, Adult Referrals: Kathrin Moralez MD [Primary Care Provider] - Forms: ED Department Discharge Additional Instructions: Be certain you follow-up with your family doctor this week for recheck of the blood in your urine, it is very important that you have a workup for this because it could be something that is very easy to treat but if left alone can turn into something much more serious, if you continue to have intermittent blood in your urine call your doctor's office so you can be seen earlier, return to the ER if needed
== END 2018-09-20 22:56 | disposition home or self-care (01) ==
LOC: JD.ED 20:40
DX: R31.0 Gross hematuria (principal); I11.0 Hypertensive heart disease with heart failure; I50.9 Heart failure, unspecified; E11.9 Type 2 diabetes mellitus without complications; Z79.899 Other long term (current) drug therapy; Z79.82 Long term (current) use of aspirin; Z79.4 Long term (current) use of insulin; Z87.891 Personal history of nicotine dependence
CPT/HCPCS: 36415; 80053; 81001; 85025; 85610; 99282; 99283

== ENCOUNTER 2019-09-04 16:13 | Emergency (ER) | payer MEDICARE, OTHER ==
--- NOTE | 2019-09-04 17:33 | EDM.PDOC ---
ED HPI GENERAL MEDICAL PROBLEM - General Chief Complaint: Genitourinary Problem Stated Complaint: FREQUENT URINATION X 3 WEEKS Time Seen by Provider: 09/04/19 16:49 Source of Information: Reports: Patient, RN Notes Reviewed History Limitations: Reports: No Limitations - History of Present Illness INITIAL COMMENTS - FREE TEXT/NARRATIVE: Patient is an 78-year-old male who presents to the ED for the evaluation of frequent urination. Patient notes this has been a problem for last 3 weeks. He states that he is voiding urine in rather large amounts, and is going around 6 times per day, and multiple times throughout the night as well. He notes the feeling of being somewhat lightheaded when he does release his urine at times he is not having any nausea/vomiting/diarrhea, chest pain, shortness of breath, he is not complaining of any dysuria, or urgency. He does not think he has a problem with an enlarged prostate. Patient does have a history of diabetes, and takes multiple medications for this. His primary care provider is Dr. Kathrin Moralez. Patient states that he drinks less than eight 8 ounce glasses of water daily. Headache Pain Score (Numeric/FACES): 5 - Related Data Allergies Allergy/AdvReac Type Severity Reaction Status Date / Time No Known Allergies Allergy Verified 08/10/18 14:39 Home Meds: Home Meds Albuterol [Proair HFA] 1 - 2 puff INH Q4H PRN 12/18/16 [History] Aloe Vera/Sodium Chloride [[place] Saline Nasal Gel] 1 dose NASBOTH DAILY PRN [History] Aspirin [Rosa Chewable Aspirin] 81 mg PO DAILY 12/18/16 [History] Budesonide/Formoterol [Symbicort 160-4.5 MCG] 2 puff INH BID 12/18/16 [History] Fluticasone Propionate [Flonase Allergy Relief] 1 spray NASBOTH DAILY PRN [History] Insulin Glarg,Human.Rec.Analog [LantUS Solostar] 22 units SQ BEDTIME 12/18/16 [ History] Krill/[place]-3/Dha/Epa/Lipids [Krill Oil 300 mg Softgel] 300 mg PO DAILY [History] Lisinopril 10 mg PO DAILY 12/18/16 [History] Lutein/Minerals/Vit A,C & E [Ocuvite] 1 tab PO DAILY 12/18/16 [History] Multivitamin [Multivitamins] 1 tab PO DAILY 12/18/16 [History] Polyethylene Glycol 3350 [MiraLAX] 1 dose PO DAILY PRN 12/18/16 [History] Psyllium Husk [Metamucil] 1 dose PO DAILY PRN 12/18/16 [History] Turmeric Root Extract [Turmeric] 500 mg PO DAILY 12/18/16 [History] Vitamin B Complex 1 cap PO DAILY 12/18/16 [History] sitaGLIPtin Phosphate [Januvia] 100 mg PO DAILY 12/18/16 [History] Rivaroxaban [Xarelto] 20 mg PO DAILY #30 tablet 03/24/18 [Rx] Past Medical History HEENT History: Reports: Impaired Vision Other HEENT History: wears glasses, dentures Cardiovascular History: Reports: Heart Failure, Hypertension, Other (See Below) Other Cardiovascular History: diastolic dysfunction, angiogram, heart cath Respiratory History: Reports: COPD, Other (See Below) Other Respiratory History: histoplasmosis Gastrointestinal History: Reports: Chronic Constipation, Colon Polyp, PUD, Other (See Below) Other Gastrointestinal History: gastroparesis Genitourinary History: Reports: Retention, Urinary Musculoskeletal History: Reports: Osteoarthritis Endocrine/Metabolic History: Reports: Diabetes, Type II - Infectious Disease History Infectious Disease History: Reports: Chicken Pox, Measles, Mumps - Past Surgical History GI Surgical History: Reports: Cholecystectomy, Colonoscopy Musculoskeletal Surgical History: Reports: Knee Replacement, Other (See Below) Other Musculoskeletal Surgeries/Procedures:: bilateral knee replacements, great toe bone spur repair Social & Family History - Family History Family Medical History: Noncontributory - Tobacco Use Smoking Status *Q: Former Smoker Used Tobacco, but Quit: Yes Month/Year Tobacco Last Used: 1997 - Caffeine Use Caffeine Use: Reports: Coffee, Tea - Recreational Drug Use Recreational Drug Use: No - Living Situation & Occupation Living situation: Reports: Occupation: Retired ED ROS GENERAL - Review of Systems Review Of Systems: See Below Constitutional: Denies: Fever, Chills, Malaise Respiratory: Denies: Shortness of Breath Cardiovascular: Reports: Lightheadedness (when he releases urine at times). Denies: Chest Pain GI/Abdominal: Denies: Abdominal Pain, Constipation, Diarrhea, Nausea, Vomiting : Reports: Frequency. Denies: Discharge, Dysuria, Incontinence, Urgency Musculoskeletal: Denies: Back Pain ED EXAM, RENAL/ - Physical Exam Exam: See Below Exam Limited By: No Limitations General Appearance: Alert, WD/WN, No Apparent Distress Eye Exam: Bilateral Eye: EOMI, Normal Inspection, PERRL Ears: Normal External Exam Nose: Normal Inspection Throat/Mouth: Normal Inspection, Normal Lips, Normal Teeth, Normal Gums, Normal Oropharynx, Normal Voice, No Airway Compromise Head: Atraumatic, Normocephalic Neck: Normal Inspection Respiratory/Chest: No Respiratory Distress, Lungs Clear, Normal Breath Sounds, No Accessory Muscle Use, Chest Non-Tender Cardiovascular: Normal Peripheral Pulses, Regular Rate, Rhythm, No Murmur GI/Abdominal: Normal Bowel Sounds, Soft, Non-Tender, No Distention, No Mass (Male) Exam: Deferred Rectal (Males) Exam: Deferred Extremities: Normal Inspection, Normal Capillary Refill Neurological: Alert, Oriented, Normal Cognition, No Motor/Sensory Deficits Psychiatric: Normal Affect, Normal Mood Skin Exam: Warm, Dry, Intact, Normal Color, No Rash Course - Vital Signs Last Recorded V/S: Last Vital Signs Temp 98.0 F 09/04/19 16:50 Pulse 73 09/04/19 18:32 Resp 20 09/04/19 16:50 BP 118/62 09/04/19 18:32 Pulse Ox 94 L 09/04/19 18:32 - Orders/Labs/Meds Orders: Active Orders 24 hr Category Date Time Status Bladder Scan [RC] ASDIRECTED Care 09/04/19 17:07 Active Labs: Laboratory Tests 09/04/19 09/04/19 09/04/19 Range/Units 17:06 17:06 17:06 WBC 8.85 (4.23-9.07) K/mm3 RBC 4.94 (4.63-6.08) M/mm3 Hgb 15.7 (13.7-17.5) gm/dl Hct 46.7 (40.1-51.0) % MCV 94.5 H (79.0-92.2) fl MCH 31.8 (25.7-32.2) pg MCHC 33.6 (32.2-35.5) g/dl RDW Std Deviation 46.3 H (35.1-43.9) fL Plt Count 153 L (163-337) K/mm3 MPV 9.8 (9.4-12.3) fl Neut % (Auto) 68.0 H (34.0-67.9) % Lymph % (Auto) 21.5 L (21.8-53.1) % [place] % (Auto) 7.9 (5.3-12.2) % Eos % (Auto) 2.0 (0.8-7.0) Baso % (Auto) 0.3 (0.1-1.2) % Neut # (Auto) 6.01 H (1.78-5.38) K/mm3 Lymph # (Auto) 1.90 (1.32-3.57) K/mm3 [place] # (Auto) 0.70 (0.30-0.82) K/mm3 Eos # (Auto) 0.18 (0.04-0.54) K/mm3 Baso # (Auto) 0.03 (0.01-0.08) K/mm3 Sodium 140 (136-145) mEq/L Potassium 3.9 (3.5-5.1) mEq/L Chloride 104 (98-107) mEq/L Carbon Dioxide 27 (21-32) mEq/L Anion Gap 12.9 (5-15) BUN 13 (7-18) mg/dL Creatinine 0.9 (0.7-1.3) mg/dL Est Cr Clr Drug Dosing 61.20 mL/min Estimated GFR (MDRD) > 60 (>60) mL/min BUN/Creatinine Ratio 14.4 (14-18) Glucose 223 H (83-115) mg/dL Hemoglobin A1c 6.30 H (4.50-6.20) % Calcium 9.2 (8.5-10.1) mg/dL Total Bilirubin 0.5 (0.2-1.0) mg/dL AST 12 L (15-37) U/L ALT 33 (16-63) U/L Alkaline Phosphatase 65 (46-116) U/L Total Protein 7.5 (6.4-8.2) g/dl Albumin 3.7 (3.4-5.0) g/dl Globulin 3.8 gm/dL Albumin/Globulin Ratio 1.0 (1-2) Urine Color (Yellow) Urine Appearance (Clear) Urine pH (5.0-8.0) Ur Specific [place] (1.005-1.030) Urine Protein (Negative) Urine Glucose (UA) (Negative) Urine Ketones (Negative) Urine Occult Blood (Negative) Urine Nitrite (Negative) Urine Bilirubin (Negative) Urine Urobilinogen (0.2-1.0) Ur Leukocyte Esterase (Negative) Urine RBC (0-5) /hpf Urine WBC (0-5) /hpf Ur Squamous Epith Cells (0-5) /hpf Urine Bacteria (FEW) /hpf Urine Mucus (FEW) /hpf 09/04/19 Range/Units 17:45 WBC (4.23-9.07) K/mm3 RBC (4.63-6.08) M/mm3 Hgb (13.7-17.5) gm/dl Hct (40.1-51.0) % MCV (79.0-92.2) fl MCH (25.7-32.2) pg MCHC (32.2-35.5) g/dl RDW Std Deviation (35.1-43.9) fL Plt Count (163-337) K/mm3 MPV (9.4-12.3) fl Neut % (Auto) (34.0-67.9) % Lymph % (Auto) (21.8-53.1) % [place] % (Auto) (5.3-12.2) % Eos % (Auto) (0.8-7.0) Baso % (Auto) (0.1-1.2) % Neut # (Auto) (1.78-5.38) K/mm3 Lymph # (Auto) (1.32-3.57) K/mm3 [place] # (Auto) (0.30-0.82) K/mm3 Eos # (Auto) (0.04-0.54) K/mm3 Baso # (Auto) (0.01-0.08) K/mm3 Sodium (136-145) mEq/L Potassium (3.5-5.1) mEq/L Chloride (98-107) mEq/L Carbon Dioxide (21-32) mEq/L Anion Gap (5-15) BUN (7-18) mg/dL Creatinine (0.7-1.3) mg/dL Est Cr Clr Drug Dosing mL/min Estimated GFR (MDRD) (>60) mL/min BUN/Creatinine Ratio (14-18) Glucose (83-115) mg/dL Hemoglobin A1c (4.50-6.20) % Calcium (8.5-10.1) mg/dL Total Bilirubin (0.2-1.0) mg/dL AST (15-37) U/L ALT (16-63) U/L Alkaline Phosphatase (46-116) U/L Total Protein (6.4-8.2) g/dl Albumin (3.4-5.0) g/dl Globulin gm/dL Albumin/Globulin Ratio (1-2) Urine Color Yellow (Yellow) Urine Appearance Clear (Clear) Urine pH 6.0 (5.0-8.0) Ur Specific [place] > or = 1.030 (1.005-1.030) Urine Protein Negative (Negative) Urine Glucose (UA) Trace H (Negative) Urine Ketones Negative (Negative) Urine Occult Blood Negative (Negative) Urine Nitrite Negative (Negative) Urine Bilirubin Negative (Negative) Urine Urobilinogen 0.2 (0.2-1.0) Ur Leukocyte Esterase Negative (Negative) Urine RBC 0-5 (0-5) /hpf Urine WBC 0-5 (0-5) /hpf Ur Squamous Epith Cells 0-5 (0-5) /hpf Urine Bacteria Few (FEW) /hpf Urine Mucus Few (FEW) /hpf - Re-Assessments/Exams Free Text/Narrative Re-Assessment/Exam: 09/04/19 17:34 Patient presents to the ED for evaluation of frequent urination. I have ordered CBC, CMP, urinalysis, hemoglobin A1c and a bladder scan to include a pre -and post void. 09/04/19 19:24 Labs are back, and demonstrate no focal acute abnormalities. Blood sugar is mildly elevated at 233, but he states that he did just eat prior to arrival to the ER and blood draw. Hemoglobin A1c is slightly high at 6.3, but acceptable at today's visit. Patient will be told to continue his medications as previously prescribed, try to drink a little less water than normal, and follow- up with his primary care provider for further issues. He is okay with this at this time, will be discharged home. Departure - Departure Time of Disposition: 19:25 Disposition: Home, Self-Care 01 Condition: Fair Clinical Impression: Frequent urination - Discharge Information *PRESCRIPTION DRUG MONITORING PROGRAM REVIEWED*: No *COPY OF PRESCRIPTION DRUG MONITORING REPORT IN PATIENT [place]: No Referrals: Kathrin Moralez MD [Primary Care Provider] - Forms: ED Department Discharge Additional Instructions: You were evaluated in the ER today regarding your frequent urination. Laboratory evaluation was done, you do not have a urinary tract infection, you have no bacterial infection is noted by your CBC, your metabolic panel is also within normal limits, blood sugar is mildly elevated at 233, but you stated you had just eaten prior to arrival to the ER, this could account for that. Your hemoglobin A1c is 6.3%. Recommend that you try to decrease your amount of oral fluid intake over the next few days, and see if this does not help urinary frequency. Further recommend you follow-up with your regular care provider for further lab testing if deemed necessary such as 24-hour urine collection, ETC. Please return to the ER if your symptoms change or worsen. Sepsis Event Note - Evaluation Sepsis Screening Result: No Definite Risk - Focused Exam Vital Signs: Vital Signs Temp Pulse Pulse Resp BP BP Pulse Ox 09/04/19 18:32 73 118/62 94 L 09/04/19 18:31 71 92 L 09/04/19 18:30 66 94 L 09/04/19 18:16 71 114/60 92 L 09/04/19 18:15 70 91 L 09/04/19 18:01 73 110/63 91 L 09/04/19 18:00 73 91 L 09/04/19 17:51 73 93 L 09/04/19 16:50 98.0 F 89 20 137/73 97 Date Exam was Performed: 09/04/19 Time Exam was Performed: 23:25 - My Orders Last 24 Hours: My Active Orders 09/04/19 17:07 Bladder Scan [RC] ASDIRECTED - Assessment/Plan Last 24 Hours: My Active Orders 09/04/19 17:07 Bladder Scan [RC] ASDIRECTED
[2019-09-04 17:45] LABS: HEMOGLOBIN A1C 6.3 % (4.50-6.20)
[2019-09-04 18:09] VITALS: PULSE 73
[2019-09-04 18:41] VITALS: BP 118/62
== END 2019-09-04 19:30 | disposition home or self-care (01) ==
LOC: JD.ED 16:13
DX: R35.0 Frequency of micturition (principal); I11.0 Hypertensive heart disease with heart failure; I50.9 Heart failure, unspecified; M19.90 Unspecified osteoarthritis, unspecified site; J44.9 Chronic obstructive pulmonary disease, unspecified; E11.9 Type 2 diabetes mellitus without complications; Z87.891 Personal history of nicotine dependence; Z79.82 Long term (current) use of aspirin; Z79.4 Long term (current) use of insulin; Z79.01 Long term (current) use of anticoagulants; Z79.899 Other long term (current) drug therapy
CPT/HCPCS: 36415; 51798; 80053; 81001; 83036; 85025; 99282; 99284

== ENCOUNTER 2020-02-02 06:56 | Day surgery (SDC) | payer MEDICARE, OTHER ==
[2020-02-02] MEDS: Polymyxin B/Trimethoprim 10 ML Bottle EYELF SCH ×4 (07:40→10:17)
[2020-02-02] MEDS: Brimonidine 0.2% Ophth Soln 5 ML Bottle EYELF SCH ×4 (07:45→10:17)
[2020-02-02] MEDS: Phenylephrine 2.5% Ophth Soln 2 ML Bot EYELF SCH ×7 (07:50→09:50)
[2020-02-02] MEDS: Tropicamide 1% Ophth Soln 15 ML Bottle EYELF SCH ×4 (07:55→08:45)
--- NOTE | 2020-02-02 07:59 | PCM.PREANE ---
Preanesthetic Assessment - Anesthesia/Transfusion/Family Hx Anesthesia History: Prior Anesthesia Without Reaction Family History of Anesthesia Reaction: No Transfusion History: No Prior Transfusion(s) Intubation History: Unknown - Review of Systems Pulmonary: No Symptoms (COPD-quit smoking in 1997), Cough Cardiovascular: No Symptoms (HTN) Gastrointestinal: No Symptoms Neurological: No Symptoms (chronic lower back pain ) Other: Reports: None (History of small blood clots therefore on eliquis.), Easy Bleeding, Easy Bruising, Diabetes (Am blood sugar =217 @ 0745) - Physical Assessment NPO Status Date: 02/01/20 NPO Status Time: 18:30 Vital Signs: B/P: 118/57 HR: 74 Sat: 95% Temp: 98 Resp: 16 Height: 1.7 m Weight: 90.718 kg ASA Class: 2 Mental Status: Alert & Oriented x3 Airway Class: Mallampati = 2 Dentition: Reports: Dentures (upper and lower) Thyro-Mental Finger Breadths: 3 Mouth Opening Finger Breadths: 3 ROM/Head Extension: Full Lungs: Clear to Auscultation, Normal Respiratory Effort Cardiovascular: Regular Rate, Regular Rhythm, No Murmurs - Lab Values: Laboratory Last Values POC Glucose 217 mg/dL (83-110) H 02/02/20 07:44 - Allergies Allergies/Adverse Reactions: Allergies Allergy/AdvReac Type Severity Reaction Status Date / Time No Known Allergies Allergy Verified 01/29/20 14:04 - Anesthesia Plan Pre-Op Medication Ordered: Beta Eugene Beta Eugene: Metoprolol Med Last Dose Date: 02/01/20 Med Last Dose Time: 18:30 - Acknowledgements Anesthesia Type Planned: MAC Pt an Appropriate Candidate for the Planned Anesthesia: Yes Alternatives and Risks of Anesthesia Discussed w Pt/Guardian: Yes Pt/Guardian Understands and Agrees with Anesthesia Plan: Yes PreAnesthesia Questionnaire HEENT History: Reports: Impaired Vision Other HEENT History: wears glasses, dentures Cardiovascular History: Reports: Heart Failure, Hypertension, Other (See Below) Other Cardiovascular History: diastolic dysfunction, angiogram, heart cath Respiratory History: Reports: COPD, Other (See Below) Other Respiratory History: histoplasmosis Gastrointestinal History: Reports: Chronic Constipation, Colon Polyp, PUD, Other (See Below) Other Gastrointestinal History: gastroparesis Genitourinary History: Reports: Retention, Urinary Other Genitourinary History: unable to empty bladder. HAND MARKER History: Reports: None Musculoskeletal History: Reports: Osteoarthritis Neurological History: Reports: None Psychiatric History: Reports: None Endocrine/Metabolic History: Reports: Diabetes, Type II Hematologic History: Reports: None Immunologic History: Reports: None Oncologic (Cancer) History: Reports: None Dermatologic History: Reports: None - Infectious Disease History Infectious Disease History: Reports: Chicken Pox, Measles, Mumps - Past Surgical History GI Surgical History: Reports: Cholecystectomy, Colonoscopy Musculoskeletal Surgical History: Reports: Knee Replacement, Other (See Below) Other Musculoskeletal Surgeries/Procedures:: bilateral knee replacements, great toe bone spur repair - HOME MEDS Home Medications: Home Meds Albuterol [Proair HFA] 1 - 2 puff INH Q4H PRN 12/18/16 [History] Aloe Vera/Sodium Chloride [[place] Saline Nasal Gel] 1 dose NASBOTH DAILY PRN 12/18/16 [History] Budesonide/Formoterol [Symbicort 160-4.5 MCG] 2 puff INH BID 12/18/16 [History] Fluticasone Propionate [Flonase Allergy Relief] 1 spray NASBOTH DAILY PRN 12/18/16 [History] Insulin Glarg,Human.Rec.Analog [LantUS Solostar] 26 units SQ BEDTIME 12/18/16 [History] Lisinopril 5 mg PO DAILY 12/18/16 [History] Lutein/Minerals/Vit A,C & E [Ocuvite] 1 tab PO DAILY 12/18/16 [History] Multivitamin [Multivitamins] 1 tab PO DAILY 12/18/16 [History] Polyethylene Glycol 3350 [MiraLAX] 1 dose PO DAILY PRN 12/18/16 [History] Psyllium Husk [Metamucil] 1 dose PO DAILY PRN 12/18/16 [History] Vitamin B Complex 1 cap PO DAILY 12/18/16 [History] sitaGLIPtin Phosphate [Januvia] 50 mg PO DAILY 12/18/16 [History] Apixaban [Eliquis] 5 mg PO DAILY 01/29/20 [History] Cholecalciferol (Vitamin D3) [Vitamin D3] 400 unit PO DAILY 01/29/20 [History] Montelukast [Singulair] 10 mg PO DAILY 01/29/20 [History] Tamsulosin [Flomax] 0.4 mg PO DAILY 01/29/20 [History] Ubidecarenone [Co Q-10] 10 mg PO DAILY 01/29/20 [History] - CURRENT (IN HOUSE) MEDS Current Meds: Current Medications Brimonidine Tartrate (Alphagan 0.2% Ophth Soln) 0 ml EYELF ASDIRECTED RAISA Stop: 02/02/20 18:00 Last Admin: 02/02/20 07:45 Dose: 1 drop Documented by: Cefuroxime Sodium (Zinacef) 0 mg EYELF ASDIRECTED RAISA Stop: 02/02/20 18:00 Lidocaine HCl (Xylocaine-Mpf 1%) 0 ml INJECT ASDIRECTED RAISA Stop: 02/02/20 18:00 Phenylephrine HCl (Joe-Synephrine 2.5% Ophth Soln) 0 ml EYELF ASDIRECTED RAISA Stop: 02/02/20 18:00 Last Admin: 02/02/20 07:50 Dose: 1 drop Documented by: Pilocarpine HCl (Pilocar 4% Ophth Soln) 0 ml EYELF ASDIRECTED RAISA Stop: 02/02/20 18:00 Polymyxin/Trimethoprim Sulfate (Polytrim Ophth Soln) 0 ml EYELF ASDIRECTED RAISA Stop: 02/02/20 18:00 Last Admin: 02/02/20 07:40 Dose: 1 drop Documented by: Tetracaine HCl (Tetracaine 0.5% Steri-Unit Evelyn) 0 ml EYEBOTH ASDIRECTED RAISA Stop: 02/02/20 18:00 Tropicamide (Mydriacyl 1% Ophth Soln) 0 ml EYELF ASDIRECTED RAISA Stop: 02/02/20 18:00
[2020-02-02] MEDS: Tetracaine HCl/PF 0.5% 4 ML Bottle EYEBOTH SCH ×5 (09:28→10:00)
[2020-02-02] MEDS: Cefuroxime 10 MG/ML SYRINGE EYELF SCH ×2 (09:39→10:17)
[2020-02-02] MEDS: Lidocaine 1% PF 2 ML SDV INJECT SCH ×2 (09:39→10:00)
[2020-02-02] MEDS: Pilocarpine 4% Ophth Soln 15 ML Bot EYELF SCH ×2 (09:40→10:17)
--- NOTE | 2020-02-02 10:19 | PCM48HPAN ---
Post Anesthesia Note - EVALUATION WITHIN 48HRS OF ANESTHETIC Vital Signs in Normal Range: Yes Patient Participated in Evaluation: Yes Respiratory Function Stable: Yes Airway Patent: Yes Cardiovascular Function Stable: Yes Hydration Status Stable: Yes Pain Control Satisfactory: Yes Nausea and Vomiting Control Satisfactory: Yes Mental Status Recovered: Yes Vital Signs: Last Vital Signs Temp 98.0 F 02/02/20 07:35 Pulse 74 02/02/20 07:35 Resp 16 02/02/20 07:35 BP 118/57 L 02/02/20 07:35 Pulse Ox 95 02/02/20 07:35 1020 121/73 20 80 97%
[2020-02-02 10:44] VITALS: BP 141/89; PULSE 70
== END 2020-02-02 10:30 | disposition home or self-care (01) ==
LOC: JD.SDS 06:56
PROVIDERS: ATTEND Ophthalmology
DX: E11.36 Type 2 diabetes mellitus with diabetic cataract (principal); H25.813 Combined forms of age-related cataract, bilateral; H16.223 Keratoconjunctivitis sicca, not specified as Sjogren's, bilateral; H02.834 Dermatochalasis of left upper eyelid; H02.831 Dermatochalasis of right upper eyelid; H16.103 Unspecified superficial keratitis, bilateral; H21.81 Floppy iris syndrome; H21.42 Pupillary membranes, left eye; I10 Essential (primary) hypertension; Z87.891 Personal history of nicotine dependence; Z79.899 Other long term (current) drug therapy
CPT/HCPCS: 66982; 82962; J0697; J2001; C1780

== ENCOUNTER 2020-03-01 06:46 | Day surgery (SDC) | payer MEDICARE, OTHER ==
[2020-03-01 07:00] VITALS: PULSE 78
[2020-03-01] MEDS: Polymyxin B/Trimethoprim 10 ML Bottle EYERT SCH ×3 (07:12→08:32)
[2020-03-01] MEDS: Brimonidine 0.2% Ophth Soln 5 ML Bottle EYERT SCH ×4 (07:15→08:32)
[2020-03-01] MEDS: Phenylephrine 2.5% Ophth Soln 2 ML Bot EYERT SCH ×6 (07:18→08:06)
[2020-03-01] MEDS: Tropicamide 1% Ophth Soln 15 ML Bottle EYERT SCH ×4 (07:21→07:44)
[2020-03-01] MEDS: Tetracaine HCl/PF 0.5% 4 ML Bottle EYEBOTH SCH ×5 (07:46→08:17)
--- NOTE | 2020-03-01 07:48 | PCM.PREANE ---
Preanesthetic Assessment - Procedure Proposed Procedure: Right Eye Cataract Extraction - Anesthesia/Transfusion/Family Hx Anesthesia History: Prior Anesthesia Without Reaction Family History of Anesthesia Reaction: No Transfusion History: No Prior Transfusion(s) Intubation History: Unknown - Review of Systems General: No Symptoms Pulmonary: Other (COPD, stable, no 02 use. ) Cardiovascular: No Symptoms Gastrointestinal: No Symptoms Neurological: No Symptoms Other: Reports: Diabetes (Insulin therapy, Blood Glucose 221mg/dl.) - Physical Assessment NPO Status Date: 02/29/20 NPO Status Time: 19:00 Vital Signs: Last Vital Signs Temp 36.6 C 03/01/20 06:35 Pulse 78 03/01/20 06:35 Resp 16 03/01/20 06:35 BP 114/56 L 03/01/20 06:35 Pulse Ox 93 L 03/01/20 06:35 Height: 1.68 m Weight: 90.718 kg ASA Class: 3 Mental Status: Alert & Oriented x3 Airway Class: Mallampati = 2 Dentition: Reports: Normal Dentition Thyro-Mental Finger Breadths: 3 Mouth Opening Finger Breadths: 3 ROM/Head Extension: Full Lungs: Clear to Auscultation, Normal Respiratory Effort Cardiovascular: Regular Rate, Regular Rhythm - Lab Values: Laboratory Last Values POC Glucose 221 mg/dL (83-110) H 03/01/20 07:26 - Allergies Allergies/Adverse Reactions: Allergies Allergy/AdvReac Type Severity Reaction Status Date / Time No Known Allergies Allergy Verified 02/26/20 10:40 - Anesthesia Plan Beta Eugene: Metoprolol Med Last Dose Date: 02/29/20 Med Last Dose Time: 17:00 - Acknowledgements Anesthesia Type Planned: MAC Pt an Appropriate Candidate for the Planned Anesthesia: Yes Alternatives and Risks of Anesthesia Discussed w Pt/Guardian: Yes Pt/Guardian Understands and Agrees with Anesthesia Plan: Yes PreAnesthesia Questionnaire HEENT History: Reports: Impaired Vision Other HEENT History: wears glasses, dentures Cardiovascular History: Reports: Heart Failure, Hypertension, Other (See Below) Other Cardiovascular History: diastolic dysfunction, angiogram, heart cath Respiratory History: Reports: COPD, Other (See Below) Other Respiratory History: histoplasmosis Gastrointestinal History: Reports: Chronic Constipation, Colon Polyp, PUD, Other (See Below) Other Gastrointestinal History: gastroparesis Genitourinary History: Reports: Retention, Urinary Other Genitourinary History: unable to empty bladder. 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 Musculoskeletal History: Reports: Osteoarthritis Neurological History: Reports: None Psychiatric History: Reports: None Endocrine/Metabolic History: Reports: Diabetes, Type II Hematologic History: Reports: None Immunologic History: Reports: None Oncologic (Cancer) History: Reports: None Dermatologic History: Reports: None - Infectious Disease History Infectious Disease History: Reports: Chicken Pox, Measles, Mumps - Past Surgical History GI Surgical History: Reports: Cholecystectomy, Colonoscopy Musculoskeletal Surgical History: Reports: Knee Replacement, Other (See Below) Other Musculoskeletal Surgeries/Procedures:: bilateral knee replacements, great toe bone spur repair - HOME MEDS Home Medications: Home Meds Albuterol [Proair HFA] 1 - 2 puff INH Q4H PRN 12/18/16 [History] Aloe Vera/Sodium Chloride [[place] Saline Nasal Gel] 1 dose NASBOTH DAILY PRN 12/18/16 [History] Budesonide/Formoterol [Symbicort 160-4.5 MCG] 2 puff INH BID 12/18/16 [History] Fluticasone Propionate [Flonase Allergy Relief] 1 spray NASBOTH DAILY PRN 12/18/16 [History] Insulin Glarg,Human.Rec.Analog [LantUS Solostar] 26 units SQ BEDTIME 12/18/16 [History] Lisinopril 5 mg PO DAILY 12/18/16 [History] Lutein/Minerals/Vit A,C & E [Ocuvite] 1 tab PO DAILY 12/18/16 [History] Multivitamin [Multivitamins] 1 tab PO DAILY 12/18/16 [History] Polyethylene Glycol 3350 [MiraLAX] 1 dose PO DAILY PRN 12/18/16 [History] Psyllium Husk [Metamucil] 1 dose PO DAILY PRN 12/18/16 [History] Vitamin B Complex 1 cap PO DAILY 12/18/16 [History] sitaGLIPtin Phosphate [Januvia] 50 mg PO DAILY 12/18/16 [History] Apixaban [Eliquis] 5 mg PO DAILY 01/29/20 [History] Cholecalciferol (Vitamin D3) [Vitamin D3] 400 unit PO DAILY 01/29/20 [History] Montelukast [Singulair] 10 mg PO DAILY 01/29/20 [History] Tamsulosin [Flomax] 0.4 mg PO DAILY 01/29/20 [History] Ubidecarenone [Co Q-10] 10 mg PO DAILY 01/29/20 [History] Metoprolol Succinate [Toprol XL] 12.5 mg PO DAILY 02/02/20 [History] - CURRENT (IN HOUSE) MEDS Current Meds: Current Medications Brimonidine Tartrate (Alphagan 0.2% Ophth Soln) 0 ml EYERT ASDIRECTED RAISA Stop: 03/01/20 18:00 Last Admin: 03/01/20 07:37 Dose: 1 drop Documented by: Cefuroxime Sodium (Zinacef) 0 mg EYERT ASDIRECTED RAISA Stop: 03/01/20 18:00 Lidocaine HCl (Xylocaine-Mpf 1%) 0 ml INJECT ASDIRECTED RAISA Stop: 03/01/20 18:00 Phenylephrine HCl (Joe-Synephrine 2.5% Ophth Soln) 0 ml EYERT ASDIRECTED RAISA Stop: 03/01/20 18:00 Last Admin: 03/01/20 07:41 Dose: 1 drop Documented by: [place] HCl (Pilocar 4% Ophth Soln) 0 ml EYERT ASDIRECTED RAISA Stop: 03/01/20 18:00 Polymyxin/Trimethoprim Sulfate (Polytrim Ophth Soln) 0 ml EYERT ASDIRECTED RAISA Stop: 03/01/20 18:00 Last Admin: 03/01/20 07:12 Dose: 1 drop Documented by: Tetracaine HCl (Tetracaine 0.5% Steri-Unit Evelyn) 0 ml EYEBOTH ASDIRECTED RAISA Stop: 03/01/20 18:00 Tropicamide (Mydriacyl 1% Ophth Soln) 0 ml EYERT ASDIRECTED RAISA Stop: 03/01/20 18:00 Last Admin: 03/01/20 07:31 Dose: 1 drop Documented by:
[2020-03-01] MEDS: Lidocaine 1% PF 2 ML SDV INJECT SCH ×2 (07:58→08:17)
[2020-03-01] MEDS: Cefuroxime 10 MG/ML SYRINGE EYERT SCH ×2 (07:59→08:31)
[2020-03-01] MEDS: Pilocarpine 4% Ophth Soln 15 ML Bot EYERT SCH ×2 (07:59→08:32)
--- NOTE | 2020-03-01 08:11 | PCM48HPAN ---
Post Anesthesia Note - EVALUATION WITHIN 48HRS OF ANESTHETIC Vital Signs in Normal Range: Yes Patient Participated in Evaluation: Yes Respiratory Function Stable: Yes Airway Patent: Yes Cardiovascular Function Stable: Yes Hydration Status Stable: Yes Pain Control Satisfactory: Yes Nausea and Vomiting Control Satisfactory: Yes Mental Status Recovered: Yes Vital Signs: Last Vital Signs Temp 36.6 C 03/01/20 06:35 Pulse 78 03/01/20 06:35 Resp 16 03/01/20 06:35 BP 114/56 L 03/01/20 06:35 Pulse Ox 93 L 03/01/20 06:35
[2020-03-01 08:51] VITALS: BP 133/66
== END 2020-03-01 08:45 | disposition home or self-care (01) ==
LOC: JD.SDS 06:46
PROVIDERS: ATTEND Ophthalmology
DX: E10.36 Type 1 diabetes mellitus with diabetic cataract (principal); H25.811 Combined forms of age-related cataract, right eye; H21.81 Floppy iris syndrome; H02.834 Dermatochalasis of left upper eyelid; H02.831 Dermatochalasis of right upper eyelid; H21.41 Pupillary membranes, right eye; J44.9 Chronic obstructive pulmonary disease, unspecified; I11.0 Hypertensive heart disease with heart failure; I50.9 Heart failure, unspecified; Z96.1 Presence of intraocular lens; Z79.899 Other long term (current) drug therapy
CPT/HCPCS: 66982; 82962; J0697; J2001; C1780

== ENCOUNTER 2021-03-19 20:55 | Emergency (ER) | payer MEDICARE, OTHER ==
--- NOTE | 2021-03-19 22:48 | EDM.PDOC ---
ED HPI GENERAL MEDICAL PROBLEM - General Chief Complaint: Respiratory Problem Stated Complaint: CONGESTION Time Seen by Provider: 03/19/21 21:43 Source of Information: Reports: Patient, Family History Limitations: Reports: No Limitations - History of Present Illness INITIAL COMMENTS - FREE TEXT/NARRATIVE: 80-year-old male presents the emergency department this evening with complaints of cough, sinus congestion and periumbilical abdominal discomfort. Patient does have a history of dementia and the tells me he is a poor historian. She states that he has had cold symptoms for the past 7 days. She states he has not had a fever or chills. He has not had any nausea vomiting, headache, shortness of breath or sore throat. She states he has chronic diarrhea due to his Alzheimer's medication. He states that this morning at some time he developed periumbilical abdominal discomfort that he states comes and goes. He denies any urinary symptoms such as frequency, urgency or irritation when voiding. He denies a decrease in his appetite. Upper Abdomen Pain Score (Numeric/FACES): 3 - Related Data Allergies Allergy/AdvReac Type Severity Reaction Status Date / Time No Known Allergies Allergy Verified 02/26/20 10:40 Home Meds: Home Meds Albuterol [Proair HFA] 1 - 2 puff INH Q4H PRN 12/18/16 [History] Aloe Vera/Sodium Chloride [[place] Saline Nasal Gel] 1 dose NASBOTH DAILY PRN 12/18/16 [History] Budesonide/Formoterol [Symbicort 160-4.5 MCG] 2 puff INH BID 12/18/16 [History] Fluticasone Propionate [Flonase Allergy Relief] 1 spray NASBOTH DAILY PRN 12/18/16 [History] Insulin Glarg,Human.Rec.Analog [LantUS Solostar] 26 units SQ BEDTIME 12/18/16 [History] Lisinopril 5 mg PO DAILY 12/18/16 [History] Lutein/Minerals/Vit A,C & E [Ocuvite] 1 tab PO DAILY 12/18/16 [History] Multivitamin [Multivitamins] 1 tab PO DAILY 12/18/16 [History] Polyethylene Glycol 3350 [MiraLAX] 1 dose PO DAILY PRN 12/18/16 [History] Psyllium Husk [Metamucil] 1 dose PO DAILY PRN 12/18/16 [History] Vitamin B Complex 1 cap PO DAILY 12/18/16 [History] sitaGLIPtin Phosphate [Januvia] 50 mg PO DAILY 12/18/16 [History] Apixaban [Eliquis] 5 mg PO DAILY 01/29/20 [History] Cholecalciferol (Vitamin D3) [Vitamin D3] 400 unit PO DAILY 01/29/20 [History] Montelukast [Singulair] 10 mg PO DAILY 01/29/20 [History] Tamsulosin [Flomax] 0.4 mg PO DAILY 01/29/20 [History] Ubidecarenone [Co Q-10] 10 mg PO DAILY 01/29/20 [History] Metoprolol Succinate [Toprol XL] 12.5 mg PO DAILY 02/02/20 [History] Past Medical History HEENT History: Reports: Impaired Vision Other HEENT History: wears glasses, dentures Cardiovascular History: Reports: Heart Failure, Hypertension, Other (See Below) Other Cardiovascular History: diastolic dysfunction, angiogram, heart cath Respiratory History: Reports: COPD, Other (See Below) Other Respiratory History: histoplasmosis Gastrointestinal History: Reports: Chronic Constipation, Colon Polyp, PUD, Other (See Below) Other Gastrointestinal History: gastroparesis Genitourinary History: Reports: Retention, Urinary Other Genitourinary History: unable to empty bladder. 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 Musculoskeletal History: Reports: Osteoarthritis Neurological History: Reports: None Psychiatric History: Reports: None Endocrine/Metabolic History: Reports: Diabetes, Type II Hematologic History: Reports: None Immunologic History: Reports: None Oncologic (Cancer) History: Reports: None Dermatologic History: Reports: None - Infectious Disease History Infectious Disease History: Reports: Chicken Pox, Measles, Mumps - Past Surgical History GI Surgical History: Reports: Cholecystectomy, Colonoscopy Musculoskeletal Surgical History: Reports: Knee Replacement, Other (See Below) Other Musculoskeletal Surgeries/Procedures:: bilateral knee replacements, great toe bone spur repair Social & Family History - Family History Family Medical History: No Pertinent Family History - Tobacco Use Tobacco Use Status *Q: Former Tobacco User Used Tobacco, but Quit: Yes Month/Year Tobacco Last Used: 1997 - Caffeine Use Caffeine Use: Reports: Coffee - Recreational Drug Use Recreational Drug Use: No - Living Situation & Occupation Living situation: Reports: Occupation: Retired ED ROS GENERAL - Review of Systems Review Of Systems: Comprehensive ROS is negative, except as noted in HPI. ED EXAM, GENERAL - Physical Exam Exam: See Below Exam Limited By: No Limitations General Appearance: Alert, WD/WN, No Apparent Distress Ears: Normal External Exam, Hearing Grossly Normal Nose: Normal Inspection Throat/Mouth: Normal Inspection, Normal Lips, Normal Voice, No Airway Compromise Head: Atraumatic, Normocephalic Neck: Normal Inspection, Supple Respiratory/Chest: No Respiratory Distress, Lungs Clear, Normal Breath Sounds, No Accessory Muscle Use, Chest Non-Tender Cardiovascular: Normal Peripheral Pulses, Regular Rate, Rhythm, No Edema, No Murmur Peripheral Pulses: 2+: Radial (L), Radial (R) GI/Abdominal: Normal Bowel Sounds, Soft, No Distention, Tender (Left lower quadrant) (Male) Exam: Deferred Rectal (Males) Exam: Deferred Back Exam: Normal Inspection Extremities: Normal Inspection Neurological: Alert, Oriented, Normal Cognition Psychiatric: Normal Affect, Normal Mood Skin Exam: Warm, Dry, Intact, Normal Color, No Rash Lymphatic: No Adenopathy Course - Vital Signs Text/Narrative:: As stated above patient has 7-day history of cough productive of clear sputum and sinus congestion. He developed periumbilical abdominal discomfort this morning. He denies any recent fever or chills. I have ordered a chest x-ray and a flatplate of the abdomen. Will obtain labs to include a CBC, CMP, C- reactive protein and a magnesium level. Also obtain a urinalysis with micro and culture if indicated. Last Recorded V/S: Last Vital Signs Temp 97.8 F 03/19/21 21:33 Pulse 98 03/19/21 21:33 Resp 20 03/19/21 21:33 BP 137/70 03/19/21 21:33 Pulse Ox 94 L 03/19/21 21:33 - Orders/Labs/Meds Orders: Active Orders 24 hr Category Date Time Status Chest 1V Frontal [CR] Stat Exams 03/19/21 21:52 Taken KUB [Abdomen 1V Flat] [CR] Stat Exams 03/19/21 21:52 Taken CULTURE URINE [MREF] Stat Lab 03/19/21 09:55 Received Labs: Laboratory Tests 03/19/21 03/19/21 03/19/21 Range/Units 09:55 22:08 22:08 WBC 7.84 (4.23-9.07) K/mm3 RBC 4.82 (4.63-6.08) M/mm3 Hgb 15.5 (13.7-17.5) gm/dl Hct 45.0 (40.1-51.0) % MCV 93.4 H (79.0-92.2) fl MCH 32.2 (25.7-32.2) pg MCHC 34.4 (32.2-35.5) g/dl RDW Std Deviation 44.2 H (35.1-43.9) fL Plt Count 121 L (163-337) K/mm3 MPV 9.9 (9.4-12.3) fl Neut % (Auto) 70.0 H (34.0-67.9) % Lymph % (Auto) 19.0 L (21.8-53.1) % [place] % (Auto) 8.9 (5.3-12.2) % Eos % (Auto) 1.7 (0.8-7.0) Baso % (Auto) 0.3 (0.1-1.2) % Neut # (Auto) 5.49 H (1.78-5.38) K/mm3 Lymph # (Auto) 1.49 (1.32-3.57) K/mm3 [place] # (Auto) 0.70 (0.30-0.82) K/mm3 Eos # (Auto) 0.13 (0.04-0.54) K/mm3 Baso # (Auto) 0.02 (0.01-0.08) K/mm3 Sodium 141 (136-145) mEq/L Potassium 3.7 (3.5-5.1) mEq/L Chloride 106 (98-107) mEq/L Carbon Dioxide 26 (21-32) mEq/L Anion Gap 12.7 (5-15) BUN 15 (7-18) mg/dL Creatinine 1.0 (0.7-1.3) mg/dL Est Cr Clr Drug Dosing 53.25 mL/min Estimated GFR (MDRD) > 60 (>60) mL/min BUN/Creatinine Ratio 15.0 (14-18) Glucose 191 H (70-99) mg/dL Calcium 8.6 (8.5-10.1) mg/dL Magnesium 1.9 (1.8-2.4) mg/dL Total Bilirubin 0.5 (0.2-1.0) mg/dL AST 19 (15-37) U/L ALT 33 (16-63) U/L Alkaline Phosphatase 77 (46-116) U/L C-Reactive Protein < 0.2 (<1.0) mg/dL Total Protein 6.9 (6.4-8.2) g/dl Albumin 3.3 L (3.4-5.0) g/dl Globulin 3.6 gm/dL Albumin/Globulin Ratio 0.9 L (1-2) Urine Color Yellow (Yellow) Urine Appearance Slt cloudy H (Clear) Urine pH 6.0 (5.0-8.0) Ur Specific [place] 1.025 (1.005-1.030) Urine Protein 1+ H (Negative) Urine Glucose (UA) Negative (Negative) Urine Ketones 1+ H (Negative) Urine Occult Blood 3+ H (Negative) Urine Nitrite Negative (Negative) Urine Bilirubin 1+ H (Negative) Urine Urobilinogen 1.0 (0.2-1.0) Ur Leukocyte Esterase Trace H (Negative) Urine RBC 50-75 H (0-5) /hpf Urine WBC 5-10 H (0-5) /hpf Ur Squamous Epith Cells 0-5 (0-5) /hpf Urine Bacteria Few (FEW) /hpf Urine Mucus Moderate H (FEW) /hpf - Re-Assessments/Exams Free Text/Narrative Re-Assessment/Exam: 03/19/21 22:47 Flatplate of the abdomen was reviewed and there is nothing acute appreciated. Formal radiologist report is pending Portable view of the chest is reviewed and nothing acute is appreciated. Formal radiologist report is pending. 03/19/21 23:31 Hematology reveals a WBC of 7.84, hemoglobin 15.5, hematocrit 45.0, platelet count 121 Chemistry reveals a sodium of 141, potassium 3.7, BUN 15, creatinine 1.0, glucose 191, magnesium 1.9, C-reactive protein less than 0.2 Urinalysis reveals 1+ protein, 1+ ketones, 3+ occult blood, nitrite negative, bilirubin 1+, trace leukocyte esterase, urine RBC 50-75, urine WBC 5-10, moderate mucus, urine culture is pending Patient will be treated for urinary tract infection and discharged home. He will be started on Keflex 500 mg twice daily for 7 days. Departure - Departure Time of Disposition: 23:36 Disposition: Home, Self-Care 01 Condition: Good Clinical Impression: UTI (urinary tract infection) Qualifiers: Urinary tract infection type: site unspecified Hematuria presence: with hematuria Qualified Code(s): N39.0 - Urinary tract infection, site not specified; R31.9 - Hematuria, unspecified - Discharge Information Instructions: Urinary Tract Infection, Adult Referrals: Kathrin Moralez MD [Primary Care Provider] - Forms: ED Department Discharge Additional Instructions: You were seen in the emergency department today with complaints of cough and lower abdominal discomfort. Labs were completed which were essentially unremarkable there is no sign of infection within your body however urinalysis did reveal a urinary tract infection. You are given a dose of antibiotic called Keflex while in the emergency department. You were also given a prescription for Keflex 500 mg to be taken twice daily for 7 days to treat urinary tract infection. Chest x-ray did not show any signs of pneumonia so you likely have an upper respiratory infection caused by a virus. Continue to treat your symptoms drink plenty of fluids get plenty rest. Recommend that you follow-up with your primary care provider in about a week once you have completed your course of antibiotics. Should your condition worsen or change, do not hesitate returning to the emergency department. Sepsis Event Note (ED) - Focused Exam Vital Signs: Vital Signs Temp Pulse Resp BP Pulse Ox 03/19/21 21:33 97.8 F 98 20 137/70 94 L - My Orders Last 24 Hours: My Active Orders 03/19/21 09:55 CULTURE URINE [MREF] Stat 03/19/21 21:52 Chest 1V Frontal [CR] Stat KUB [Abdomen 1V Flat] [CR] Stat - Assessment/Plan Last 24 Hours: My Active Orders 03/19/21 09:55 CULTURE URINE [MREF] Stat 03/19/21 21:52 Chest 1V Frontal [CR] Stat KUB [Abdomen 1V Flat] [CR] Stat
[2021-03-19] MEDS ORDERED: Cephalexin 500 MG Cap PO ONE (23:33)
[2021-03-19 23:52] VITALS: BP 126/73; PULSE 95
--- NOTE | 2021-03-20 15:43 | CR ---
Abdomen: Supine view of the abdomen was obtained. Comparison: Prior abdominal x-ray of 07/08/[address] study of 03/24/18. Bowel gas pattern appears within normal limits. Surgical clips are noted from prior cholecystectomy. Mild scoliosis and degenerative change is seen within the spine. No abnormal calcification or soft tissue abnormality is seen. Slight density within the left lung base is seen most likely due to scarring. Impression: 1. Incidental findings. 2. Nothing acute is seen on supine abdominal x-ray. Diagnostic code #2
--- NOTE | 2021-03-20 15:58 | CR ---
Chest: Frontal view of the chest was obtained. Comparison: Prior chest x-ray of 07/20/18. Slight density within the left lung base is seen most likely representing an area of scarring. Lungs otherwise are clear with no acute parenchymal change being seen. Heart size and mediastinum are within normal limits for age. No acute bony abnormality is appreciated. Impression: 1. Findings as noted above. 2. Nothing acute is seen on portable chest x-ray. Diagnostic code #2
== END 2021-03-19 23:55 | disposition home or self-care (01) ==
LOC: JD.ED 20:55
DX: N39.0 Urinary tract infection, site not specified (principal); R31.9 Hematuria, unspecified; I11.0 Hypertensive heart disease with heart failure; I50.9 Heart failure, unspecified; J44.9 Chronic obstructive pulmonary disease, unspecified; E11.9 Type 2 diabetes mellitus without complications; F03.90 Unspecified dementia, unspecified severity, without behavioral disturbance, psychotic disturbance, mood disturbance, and anxiety; Z87.891 Personal history of nicotine dependence; Z79.01 Long term (current) use of anticoagulants; Z79.4 Long term (current) use of insulin; Z79.899 Other long term (current) drug therapy
CPT/HCPCS: 36415; 71045; 74018; 80053; 81001; 83735; 85025; 86140; 87086; 99284; A9270; 99283

== ENCOUNTER 2023-03-20 18:38 | Inpatient (IN) | payer MEDICARE, MEDICAID ==
[2023-03-20 19:43] LABS: BASE EXCESS ARTERIAL -3.7 (-2-2.0); BICARBONATE,ARTERIAL 19.3 meq/L (22.0-26.0); O2 SATURATION ARTERIAL 92.2 % (96.0-97.0)
[2023-03-20 19:49] LABS: BASOPHILS PERCENT AUTO 0.2 % (0.0-1.0); HEMATOCRIT 39.2 % (42.0-52.0); HEMOGLOBIN 12.6 gm/dl (14.0-18.0); IMMATURE GRAN ABSOLUTE AUTO 0.07 K/mm3 (0.00-0.05); IMMATURE GRAN PERCENT AUTO 0.4 % (0.0-0.4); LYMPHOCYTES ABSOLUTE AUTO 0.9 K/mm3 (1.0-4.8); LYMPHOCYTES PERCENT AUTO 5.3 % (24.0-44.0); MEAN CORPUSCULAR HGB CONC 32.1 g/dl (32.0-36.0); MEAN CORPUSCULAR VOLUME 83.9 fl (83.0-99.0); MEAN PLATELET VOLUME 9.3 fl (9.4-12.4); MONOCYTES ABSOLUTE AUTO 0.7 K/mm3 (0.0-0.8); MONOCYTES PERCENT AUTO 4.3 % (0.0-8.0); NEUTROPHILS ABSOLUTE AUTO 14.7 K/mm3 (1.8-7.7); NEUTROPHILS PERCENT AUTO 89.8 % (41.0-71.0); PLATELET COUNT,PLT 136 K/mm3 (150-400); RED BLOOD CELL COUNT 4.67 M/mm3 (4.52-5.90); WHITE BLOOD CELL COUNT,WBC 16.38 K/mm3 (3.9-11.3)
[2023-03-20 20:19] LABS: A/G RATIO 0.8 (1-2); ALANINE AMINOTRANSFERASE,ALT 18 U/L (16-63); ALKALINE PHOSPHATASE 77 U/L (46-116); ANION GAP 15.4 (5-15); ASPARTATE AMNIOTRANSFERASE,AST 19 U/L (15-37); BILIRUBIN TOTAL 0.5 mg/dL (0.2-1.0); BLOOD UREA NITROGEN,BUN 13 mg/dL (7-18); C-REACTIVE PROTEIN 3.7 mg/dL (<1.0); CALCIUM 8.3 mg/dL (8.5-10.1); CARBON DIOXIDE,CO2 21 mEq/L (21-32); CHLORIDE,CL 106 mEq/L (98-107); ESTIMATED GFR 74 mL/min (>60); GLUCOSE RANDOM 158 mg/dL (70-99); POTASSIUM,K 3.4 mEq/L (3.5-5.1); PROTEIN TOTAL,TP 6.9 g/dl (6.4-8.2); SODIUM,NA 139 mEq/L (136-145)
[2023-03-20] MEDS ORDERED: Azithromycin 500 MG in Sodium Chloride 0.9% 250 ML IV ONE (20:29)
[2023-03-20] MEDS ORDERED: cefTRIAXone 1 GM in Sodium Chloride 0.9% 100 ML IV ONE (20:29)
[2023-03-21] MEDS ORDERED: Acetaminophen 325 MG Tab PO PRN (07:41)
[2023-03-21] MEDS ORDERED: Albuterol/Ipratropium 3.0-0.5 MG/3 ML Neb Soln NEB PRN (07:41)
[2023-03-21] MEDS ORDERED: Albuterol 0.083% 2.5 MG/3 ML Neb Soln NEB PRN (07:41)
[2023-03-21] MEDS ORDERED: Docusate Sodium 100 MG Cap PO PRN (07:41)
[2023-03-21] MEDS ORDERED: oxyCODONE 5 MG Tab PO PRN (07:41)
[2023-03-21] MEDS ORDERED: Ondansetron 4 MG/2 ML SDV IV PRN (07:41)
[2023-03-21] MEDS: Montelukast 10 MG Tab PO SCH (09:13)
[2023-03-21] MEDS: Tamsulosin 0.4 MG Cap.ER PO SCH (09:13)
[2023-03-21] MEDS: Insulin Glargine,Human Rec. Analog 100 Units/ML 3 ML Pen SUBCUT SCH (09:15)
[2023-03-21] MEDS: Metoprolol Succinate 25 MG Tab.ER PO SCH (09:20)
[2023-03-21] MEDS: Insulin Lispro 100 Unit/ML 3 ML KwikPen SUBCUT SCH ×3 (11:13→21:45)
[2023-03-21] MEDS ORDERED: Azithromycin 500 MG in Sodium Chloride 0.9% 250 ML IV SCH (20:30)
[2023-03-21] MEDS ORDERED: cefTRIAXone 2 GM in Sodium Chloride 0.9% 100 ML IV SCH (20:30)
[2023-03-21] MEDS ORDERED: Pantoprazole 40 MG Tab.CR PO SCH (21:00)
[2023-03-22 05:25] LABS: ANION GAP 11.3 (5-15); CALCIUM 8.2 mg/dL (8.5-10.1); EST CRCL DRUG DOSING (CG) 53.2 mL/min; MAGNESIUM 1.8 mg/dL (1.8-2.4); POTASSIUM,K 3.3 mEq/L (3.5-5.1)
[2023-03-22 05:27] LABS: BASOPHILS PERCENT AUTO 0.2 % (0.0-1.0); EOSINOPHILS ABSOLUTE AUTO 0.1 K/mm3 (0.0-0.4); EOSINOPHILS PERCENT AUTO 0.3 % (0.0-6.0); HEMATOCRIT 35.1 % (42.0-52.0); HEMOGLOBIN 11.1 gm/dl (14.0-18.0); IMMATURE GRAN ABSOLUTE AUTO 0.09 K/mm3 (0.00-0.05); IMMATURE GRAN PERCENT AUTO 0.6 % (0.0-0.4); LYMPHOCYTES ABSOLUTE AUTO 1.8 K/mm3 (1.0-4.8); LYMPHOCYTES PERCENT AUTO 11.6 % (24.0-44.0); MEAN CORPUSCULAR HEMOGLOBIN 27.1 pg (28.0-32.0); MEAN CORPUSCULAR HGB CONC 31.6 g/dl (32.0-36.0); MEAN CORPUSCULAR VOLUME 85.8 fl (83.0-99.0); MEAN PLATELET VOLUME 10.1 fl (9.4-12.4); MONOCYTES ABSOLUTE AUTO 1.4 K/mm3 (0.0-0.8); NEUTROPHILS ABSOLUTE AUTO 12.1 K/mm3 (1.8-7.7); NEUTROPHILS PERCENT AUTO 78.3 % (41.0-71.0); PLATELET COUNT,PLT 122 K/mm3 (150-400); RED BLOOD CELL COUNT 4.09 M/mm3 (4.52-5.90); WHITE BLOOD CELL COUNT,WBC 15.49 K/mm3 (3.9-11.3)
[2023-03-22] MEDS: Insulin Lispro 100 Unit/ML 3 ML KwikPen SUBCUT SCH ×2 (07:42→11:49)
[2023-03-22] MEDS: Montelukast 10 MG Tab PO SCH (08:02)
[2023-03-22] MEDS: Tamsulosin 0.4 MG Cap.ER PO SCH (08:02)
[2023-03-22] MEDS: Insulin Glargine,Human Rec. Analog 100 Units/ML 3 ML Pen SUBCUT SCH (08:03)
[2023-03-22] MEDS ORDERED: Potassium Chloride 20 MEQ Tab.ER PO SCH (09:00)
[2023-03-22] MEDS: Metoprolol Succinate 25 MG Tab.ER PO SCH (09:37)
[2023-03-22 12:20] VITALS: BP 110/55; PULSE 77
== END 2023-03-22 13:20 | DRG 194 ==
LOC: JD.ED 18:38 → JD.MS 20:50
PROVIDERS: ADMIT Emergency Medicine; ATTEND Emergency Medicine
DX: J18.9 Pneumonia, unspecified organism (principal); I50.32 Chronic diastolic (congestive) heart failure; J44.0 Chronic obstructive pulmonary disease with (acute) lower respiratory infection; G30.9 Alzheimer's disease, unspecified; K59.09 Other constipation; F02.80 Dementia in other diseases classified elsewhere, unspecified severity, without behavioral disturbance, psychotic disturbance, mood disturbance, and anxiety; Z66 Do not resuscitate; J44.9 Chronic obstructive pulmonary disease, unspecified; I11.0 Hypertensive heart disease with heart failure; M15.9 Polyosteoarthritis, unspecified; R33.9 Retention of urine, unspecified; D69.6 Thrombocytopenia, unspecified; R09.02 Hypoxemia; E87.6 Hypokalemia; Z96.659 Presence of unspecified artificial knee joint; Z87.11 Personal history of peptic ulcer disease; Z86.010 Personal history of colon polyps; Z90.49 Acquired absence of other specified parts of digestive tract; Z86.19 Personal history of other infectious and parasitic diseases; I50.30 Unspecified diastolic (congestive) heart failure; E11.9 Type 2 diabetes mellitus without complications; Z98.890 Other specified postprocedural states; Z88.8 Allergy status to other drugs, medicaments and biological substances; Z79.4 Long term (current) use of insulin; Z79.899 Other long term (current) drug therapy
CPT/HCPCS: 36415; 36600; 71045; 71045-26; 80048; 80053; 82803; 82947; 83605; 83735; 83880; 85025; 86140; 87040; 87641; 97116-GP; 97162-GP; 97530-GP; 99222; 99239; 99283; 99284; A9270-GY; J0456; J0696; J1815; J1815-GY; J3490; J7050